=== PATIENT | female | born 1935 | race Caucasian/White ===

== ENCOUNTER 2017-10-25 17:06 | Inpatient (IN) | payer MEDICARE, OTHER ==
[~2017-10-25] VITALS: Ht 162.6 cm; Wt 64.0 kg
--- NOTE | 2017-10-25 17:00 | NUR ---
Admitted from [facility], [facility], accompanied by ambulance staff. In stable condition, alert x4. Not in any form of distress. With slurred speech, right lower extremity weakness. Oriented to unit. Call light within reach. Routine admission care done.
--- NOTE | 2017-10-25 17:30 | NUR ---
Informed Dr La and Dr. Teofilo Menchaca of admission.
[2017-10-25 18:11] VITALS: BP 134/66
[2017-10-25] MEDS ORDERED: Z GUARD REMEDY PASTE 57 GM TUBE TOP PRN (18:15)
[2017-10-25] MEDS ORDERED: PREG50CA PO (18:15)
[2017-10-25] MEDS ORDERED: APIX5TAB PO (18:15)
[2017-10-25] MEDS ORDERED: ATOR80TA PO (18:15)
[2017-10-25] MEDS ORDERED: SENN-18 PO (18:15)
[2017-10-25] MEDS ORDERED: MAGNESIUM HYDROXIDE 30 ML LIQUID UDC PO PRN (18:15)
[2017-10-25] MEDS ORDERED: DILT120C11 PO (18:15)
[2017-10-25] MEDS ORDERED: TOLT4CAP PO (18:15)
[2017-10-25] MEDS ORDERED: METH5TAB70 PO (18:15)
[2017-10-25] MEDS ORDERED: PANT40TA2 PO (18:15)
[2017-10-25] MEDS ORDERED: ACET-2154 PO (18:15)
[2017-10-25] MEDS ORDERED: ZOLPIDEM 5 MG TABLET PO PRN (18:30)
--- NOTE | 2017-10-25 19:30 | NUR ---
Received patient in bed. Alert and verbally responsive. Able to make needs known. Denies any pain and discomfort at this time. No acute distress. No SOB. Kept clean and dry. All needs attended to promptly. Call light within reach. Will continue to monitor.
[2017-10-25] MEDS ORDERED: APIXABAN 5 MG TABLET PO ONE (20:00)
[2017-10-25] MEDS ORDERED: ACETAMINOPHEN 325 MG TABLET PO PRN (20:00)
--- NOTE | 2017-10-25 20:30 | NUR ---
Eliquyasemin not administered. Home med not in stock. Pending family member to send medication.
[2017-10-25 20:46] VITALS: BP 128/71
[2017-10-25] MEDS: DILTIAZEM HCL SR 60 MG CAP.SR.12H PO SCH (21:26)
[2017-10-25] MEDS: SENNOSIDES 1 TABLET PO SCH (21:27)
[2017-10-25] MEDS: ATORVASTATIN 40 MG TABLET PO SCH (21:27)
--- NOTE | 2017-10-26 06:14 | NUR ---
Patient slept comfortably throughout the night. No c/o pain and discomfort. No acute distress. No SOB. Kept clean and dry. All needs attended to promptly. Call light within reach. Will continue to monitor.
[2017-10-26] MEDS: PANTOPRAZOLE SODIUM 40 MG TABLET.DR PO SCH (06:29)
[2017-10-26 08:52] VITALS: BP 104/48
[2017-10-26] MEDS ORDERED: APIXABAN 5 MG TABLET PO SCH (09:00)
[2017-10-26] MEDS ORDERED: APIXABAN 5 MG TABLET PO ONE (09:15)
[2017-10-26] MEDS: METHIMAZOLE 5 MG TABLET PO SCH ×2 (09:28→17:06)
[2017-10-26] MEDS: TOLTERODINE LA 2 MG CAP.SR.24H PO SCH (09:29)
[2017-10-26] MEDS: PREGABALIN 50 MG CAPSULE PO SCH ×3 (09:29→17:06)
[2017-10-26] MEDS: DILTIAZEM HCL SR 60 MG CAP.SR.12H PO SCH ×2 (09:29→21:00)
--- NOTE | 2017-10-26 10:01 | NUR ---
pt seen on rounding. pt vitals stable. no signs of stroke.NIH baseline remained the same. pt assessed and had mild right sided weakness. PT and OT agreed. pt seen by . signs of dysphagia. pt able to swallow pills whole. will continue to monitor.
[2017-10-26] MEDS: APIXABAN 5 MG TABLET PO SCH (17:05)
--- NOTE | 2017-10-26 18:33 | NUR ---
pt stable throughout the day. pt continues to sleep interminently throughout the day. vitals stable. no changes on NIH scale. seen by md webster. states that he will do notes later. will endorse to steam pipe fitter nurse.
--- NOTE | 2017-10-26 19:30 | NUR ---
Received patient awake in bed, no s/s of distress. Verbalized absence of pain at this time. Call light within reach. Encouraged to call whenever necessary. Will continue to monitor.
[2017-10-26 20:45] VITALS: BP 117/69
[2017-10-26] MEDS: ATORVASTATIN 40 MG TABLET PO SCH (21:27)
[2017-10-26] MEDS: SENNOSIDES 1 TABLET PO SCH (21:27)
[2017-10-27] MEDS: PANTOPRAZOLE SODIUM 40 MG TABLET.DR PO SCH (06:37)
--- NOTE | 2017-10-27 06:47 | NUR ---
Pt awake in bed. Stayed in a stable condition during the shift. Slept well. No complaints of pain. Due meds given. Needs attended. Frequent checks done. Call light kept within reach. Endorsed accordingly.
[2017-10-27] MEDS: PREGABALIN 50 MG CAPSULE PO SCH ×3 (08:32→16:37)
[2017-10-27] MEDS: APIXABAN 5 MG TABLET PO SCH ×2 (08:32→16:38)
[2017-10-27] MEDS: TOLTERODINE LA 2 MG CAP.SR.24H PO SCH (08:32)
[2017-10-27] MEDS: DILTIAZEM HCL SR 60 MG CAP.SR.12H PO SCH ×2 (08:33→20:42)
[2017-10-27] MEDS: METHIMAZOLE 5 MG TABLET PO SCH ×2 (08:34→16:37)
--- NOTE | 2017-10-27 09:44 | NUR ---
pt seen on rounding. vitals stable. no new injuries. pt given med whole without dysphagia. pt assisted to the bathroom pt voided and had bm. pt is mod assist on walking because pt loses strength as she walks. nih baseline. will continue to monitor.
[2017-10-27 10:00] VITALS: BP 125/68
[2017-10-27] MEDS ORDERED: APIXABAN 5 MG TABLET PO SCH (12:30)
[2017-10-27] MEDS: ASPIRIN EC 81 MG TABLET.DR PO SCH (12:55)
--- NOTE | 2017-10-27 17:56 | NUR ---
pt stable throughout the day. no changes on NIH scale. pt given meds. no new orders from md Barba. will endorse to plant operator/shift supervisor nurse.
--- NOTE | 2017-10-27 19:40 | NUR ---
Pt resting comfortably in bed and watching TV. Icelandic speaking, speak a little bit of Guinean. Able to make needs known. No acute distress noted. No c/o pain or discomfort. Safety measures maintained. Call light and personal belongings within reach. Will continue to monitor.
[2017-10-27 20:25] VITALS: BP 134/77
[2017-10-27] MEDS: SENNOSIDES 1 TABLET PO SCH (20:39)
[2017-10-27] MEDS: ATORVASTATIN 40 MG TABLET PO SCH (20:39)
--- NOTE | 2017-10-28 05:45 | NUR ---
Pt slept comfortably t/o the night. VSS. Meds given per MD's order. Pt is compliant. All needs attended to promptly. Will endorse to day shift RN. Continue to monitor.
[2017-10-28] MEDS: PANTOPRAZOLE SODIUM 40 MG TABLET.DR PO SCH (06:31)
--- NOTE | 2017-10-28 07:20 | NUR ---
NURSE NOTES: RECEIVED PATIENT ASLEEP, LYING ON BED ON A SEMI- ARRIOLA'S POSITION WITH NO MOANING, NO DISTRESS OR DISCOMFORTS NOTED. EASILY AROUSED. ALL NEEDS WERE ATTENDED AND ANTICIPATED. WILL CONTINUE TO MONITOR.
[2017-10-28 08:16] VITALS: BP 136/60
[2017-10-28] MEDS: ASPIRIN EC 81 MG TABLET.DR PO SCH (08:29)
[2017-10-28] MEDS: PREGABALIN 50 MG CAPSULE PO SCH ×3 (08:30→16:59)
[2017-10-28] MEDS: APIXABAN 5 MG TABLET PO SCH ×2 (08:30→17:00)
[2017-10-28] MEDS: METHIMAZOLE 5 MG TABLET PO SCH ×2 (08:30→16:59)
[2017-10-28] MEDS: TOLTERODINE LA 2 MG CAP.SR.24H PO SCH (08:31)
[2017-10-28] MEDS: DILTIAZEM HCL SR 60 MG CAP.SR.12H PO SCH ×2 (08:31→20:32)
--- NOTE | 2017-10-28 13:00 | NUR ---
PATIENT ASLEEP, LYING ON BED ON A SEMI- ARRIOLA'S POSITION WITH NO SOB NO DISTRESS NOTED. ALL NEEDS WERE ATTENDED AND ANTICIPATED. PATIENT EASILY AROUSED. ALL NEEDS WERE ATTENDED AND ANTICIPATED. CALL LIGHT WITHIN REACH. WILL CONTINUE TO MONITOR.
[2017-10-28] MEDS ORDERED: ACETAMINOPHEN 325 MG TABLET PO SCH (14:45)
[2017-10-28] MEDS: ACETAMINOPHEN ES 500 MG TABLET PO SCH ×2 (15:01→16:59)
--- NOTE | 2017-10-28 18:51 | NUR ---
PATIENT REMAINED TO BE IN STABLE CONDITION WITH NO SOB, NO DISTRESS NOTED. ALL NEEDS WERE ATTENDED AND ANTICIPATED. CALL LIGHT PLACED WITHIN REACH. WILL ENDORSE TO INCOMING SHIFT.
--- NOTE | 2017-10-28 19:30 | NUR ---
Report received. Patient AAO during rounds. Able to communicate needs. NAD noted.
[2017-10-28 20:00] VITALS: BP 118/65
--- NOTE | 2017-10-28 20:00 | NUR ---
Family visiting. Stephan bottle received from patient's daughter and given to operations logistics analyst. Patient conversant and responds well to family.
[2017-10-28] MEDS: SENNOSIDES 1 TABLET PO SCH (20:32)
[2017-10-28] MEDS: ATORVASTATIN 40 MG TABLET PO SCH (20:32)
[2017-10-29] MEDS: PANTOPRAZOLE SODIUM 40 MG TABLET.DR PO SCH (06:25)
[2017-10-29 06:50] LABS: BASOPHILS % (AUTO) 0.3 % (0.0-2.0); EOSINOPHILS # (AUTO) 0.2 K/uL (0.0-0.7); EOSINOPHILS % (AUTO) 2.1 % (0.0-7.0); HEMATOCRIT 38.3 % (31.2-41.9); HEMOGLOBIN 12.7 g/dL (10.9-14.3); LYMPHOCYTES # (AUTO) 2.8 K/uL (20.0-40.0); LYMPHOCYTES % (AUTO) 28.2 % (20.5-51.5); MEAN CORPUSCULAR HEMOGLOBIN 29.1 uug (24.7-32.8); MEAN CORPUSCULAR HGB CONC 33 g/dL (32.3-35.6); MEAN CORPUSCULAR VOLUME 87.5 fL (75.5-95.3); MONOCYTES % (AUTO) 10.5 % (0.0-11.0); NEUTROPHILS # (AUTO) 5.8 K/uL (1.8-8.9); NEUTROPHILS % (AUTO) 58.9 % (38.5-71.5); PLATELET COUNT (AUTO) 254 K/uL (179-408); RED BLOOD CELL COUNT(AUTO) 4.38 MIL/uL (3.63-4.92); WHITE BLOOD COUNT (AUTO) 9.9 K/uL (3.8-11.8)
--- NOTE | 2017-10-29 06:51 | NUR ---
Slept well during the night. NAD noted.
[2017-10-29 07:00] LABS: ALANINE AMINOTRANSFERASE 15 U/L (14-59); ALKALINE PHOSPHATASE 79 U/L (50-136); ASPARTATE AMINOTRANSFERASE 18 U/L (15-37); BILIRUBIN,TOTAL 0.4 mg/dL (0.2-1.0); CARBON DIOXIDE 26 mmol/L (21-32); CHLORIDE 105 mmol/L (98-107); GLUCOSE 103 mg/dL (74-106); MAGNESIUM 1.9 mg/dL (1.8-2.4); PHOSPHOROUS 3.2 mg/dL (2.5-4.9); POTASSIUM 4.5 mmol/L (3.5-5.1); TOTAL PROTEIN, SERUM 6.6 g/dL (6.4-8.2); UREA NITROGEN, BLOOD 27 mg/dL (7-18)
[2017-10-29 07:30] VITALS: BP 131/66
[2017-10-29] MEDS: TOLTERODINE LA 2 MG CAP.SR.24H PO SCH (09:00)
[2017-10-29] MEDS: METHIMAZOLE 5 MG TABLET PO SCH ×2 (10:40→18:09)
[2017-10-29] MEDS: ACETAMINOPHEN ES 500 MG TABLET PO SCH ×3 (10:40→18:08)
[2017-10-29] MEDS: ASPIRIN EC 81 MG TABLET.DR PO SCH (10:41)
[2017-10-29] MEDS: DILTIAZEM HCL SR 60 MG CAP.SR.12H PO SCH ×2 (10:42→20:17)
[2017-10-29] MEDS: PREGABALIN 50 MG CAPSULE PO SCH ×3 (10:43→18:08)
[2017-10-29] MEDS: ****PATIENT'S OWN MED PO SCH ×2 (10:43→18:10)
--- NOTE | 2017-10-29 19:30 | NUR ---
Patient currently lying in bed comfortably with no signs of pain, sob, or acute distress. A/O x4, Farsi speaking, & able to make needs known. Pertinent assessment completed. Bed in low position x2 side rails up. Bed alarm checked at start of shift. Call light placed within reach of pt. Will continue to monitor pt through shift.
[2017-10-29] MEDS: SENNOSIDES 1 TABLET PO SCH (20:17)
[2017-10-29] MEDS: ATORVASTATIN 40 MG TABLET PO SCH (20:17)
[2017-10-29 20:29] VITALS: BP 129/73
--- NOTE | 2017-10-30 05:45 | NUR ---
Patient slept well through the shift. no acute distress noted. vital signs remained WNL. all needs attended to. all meds administered as ordered per MD. diaper changed per soiling. safety measures implemented. call light within reach. will endorse to day shift nurse.
[2017-10-30] MEDS: PANTOPRAZOLE SODIUM 40 MG TABLET.DR PO SCH (06:32)
[2017-10-30 08:07] VITALS: BP 129/68
[2017-10-30] MEDS: PREGABALIN 50 MG CAPSULE PO SCH ×3 (08:48→17:13)
[2017-10-30] MEDS: ACETAMINOPHEN ES 500 MG TABLET PO SCH ×3 (08:48→17:13)
[2017-10-30] MEDS: ASPIRIN EC 81 MG TABLET.DR PO SCH (08:48)
[2017-10-30] MEDS: METHIMAZOLE 5 MG TABLET PO SCH ×2 (08:49→17:12)
[2017-10-30] MEDS: TOLTERODINE LA 2 MG CAP.SR.24H PO SCH (08:49)
[2017-10-30] MEDS: ****PATIENT'S OWN MED PO SCH ×2 (08:49→17:15)
[2017-10-30] MEDS: DILTIAZEM HCL SR 60 MG CAP.SR.12H PO SCH ×2 (08:51→20:15)
--- NOTE | 2017-10-30 19:30 | NUR ---
Patient currently lying in bed at start of shift with no signs of pain, sob, or acute distress. Daughter at the bedside. Vital signs within range. Pertinent assessment completed. able to make needs known. bed in low position, locked, x2 side rails up. encouraged patient to use call light when in need of assistance. will continue to monitor pt through shift.
[2017-10-30] MEDS: SENNOSIDES 1 TABLET PO SCH (20:14)
[2017-10-30] MEDS: ATORVASTATIN 40 MG TABLET PO SCH (20:14)
[2017-10-30 20:21] VITALS: BP 118/70
--- NOTE | 2017-10-31 05:43 | NUR ---
Patient slept well through the shift. no acute distress noted. All medications administered as ordered per MD. Needs attended to promptly. patient changed per soiling. kept clean, dry. safety measures implemented. bed in low position x2 side rails up. call light within reach. will endorse to day shift RN.
[2017-10-31] MEDS: PANTOPRAZOLE SODIUM 40 MG TABLET.DR PO SCH (06:30)
[2017-10-31] MEDS: DILTIAZEM HCL SR 60 MG CAP.SR.12H PO SCH ×2 (09:11→20:30)
[2017-10-31] MEDS: TOLTERODINE LA 2 MG CAP.SR.24H PO SCH (09:12)
[2017-10-31] MEDS: ACETAMINOPHEN ES 500 MG TABLET PO SCH ×3 (09:13→18:02)
[2017-10-31] MEDS: ****PATIENT'S OWN MED PO SCH ×2 (09:13→18:03)
[2017-10-31] MEDS: ASPIRIN EC 81 MG TABLET.DR PO SCH (09:13)
[2017-10-31] MEDS: PREGABALIN 50 MG CAPSULE PO SCH ×3 (09:13→18:02)
[2017-10-31] MEDS: METHIMAZOLE 5 MG TABLET PO SCH ×2 (09:14→18:03)
[2017-10-31 09:48] VITALS: BP 140/78
[2017-10-31] MEDS ORDERED: BISACODYL 5 MG TABLET.DR PO PRN (19:00)
[2017-10-31 19:30] VITALS: BP 141/66
--- NOTE | 2017-10-31 19:30 | NUR ---
Patient currently stable with no s/s of pain, sob, or acute distress. Lying in bed comfortably, bed in low position x2 side rails up. Pertinent assessment completed. patient still noted with constipation. Day shift RN received new orders for Dulcolax tabs. Will carry out order and monitor pt for BM. call light within reach of pt. will continue to monitor pt through shift.
[2017-10-31] MEDS: SENNOSIDES 1 TABLET PO SCH (20:30)
[2017-10-31] MEDS: ATORVASTATIN 40 MG TABLET PO SCH (20:30)
[2017-10-31] MEDS: BISACODYL 5 MG TABLET.DR PO PRN (20:31)
--- NOTE | 2017-11-01 05:39 | NUR ---
Patient stable through shift. no acute distress noted. patient slept well. all needs attended to. meds administered as ordered per MD. vital signs stable through shift. safety measures implemented. call light within reach. will endorse to day shift nurse.
[2017-11-01] MEDS: PANTOPRAZOLE SODIUM 40 MG TABLET.DR PO SCH (06:30)
[2017-11-01] MEDS: DILTIAZEM HCL SR 60 MG CAP.SR.12H PO SCH ×2 (09:01→21:02)
[2017-11-01 09:02] VITALS: BP 135/72
[2017-11-01] MEDS: TOLTERODINE LA 2 MG CAP.SR.24H PO SCH (09:03)
[2017-11-01] MEDS: PREGABALIN 50 MG CAPSULE PO SCH ×3 (09:03→16:22)
[2017-11-01] MEDS: ASPIRIN EC 81 MG TABLET.DR PO SCH (09:04)
[2017-11-01] MEDS: METHIMAZOLE 5 MG TABLET PO SCH ×2 (09:04→16:23)
[2017-11-01] MEDS: ACETAMINOPHEN ES 500 MG TABLET PO SCH ×3 (09:05→16:22)
[2017-11-01] MEDS: BISACODYL 5 MG TABLET.DR PO PRN (09:05)
[2017-11-01] MEDS: ****PATIENT'S OWN MED PO SCH ×2 (09:06→16:23)
--- NOTE | 2017-11-01 14:30 | NUR ---
INTERDISCIPLINARY TEAM CONFERENCE
--- NOTE | 2017-11-01 17:37 | NUR ---
Patient is awake and alert, not in acute distress, verbally responsive. Patient had a BM X2 today with no signs and no symptoms of diarrhea at this time. Patient was compliant with her plan of care, provided education as to any concerns that she has about her care plan in simple words that she can comprehend, she verbalized understanding. Patient is on routine pain medications, was encouraged to increase oral intake of fluids. Needs attended promptly. She participated well with her PT/OT today. Call light placed in easy reach.
--- NOTE | 2017-11-01 19:40 | NUR ---
Assisted the patient to rest room per request. patient had BMx 1. no c/o of pain or any discomfort will continue to monitor
[2017-11-01 20:25] VITALS: BP 108/60
[2017-11-01] MEDS: SENNOSIDES 1 TABLET PO SCH (21:02)
[2017-11-01] MEDS: ATORVASTATIN 40 MG TABLET PO SCH (21:02)
--- NOTE | 2017-11-02 06:45 | NUR ---
PATIENT INTERMITTENTLY SLEEPING. ASSISTED BRP ON REQUEST. BMX 2 DURING THE SHIFT. NO C/O PAIN OR ANY DISCOMFORT
[2017-11-02] MEDS: PANTOPRAZOLE SODIUM 40 MG TABLET.DR PO SCH (06:55)
--- NOTE | 2017-11-02 07:06 | NUR ---
NURSE NOTES: Received patient asleep, on bed, easily aroused, alert and oriented, able to verbalize needs. Call light placed within reach. Encourage to call the nurse whenever assistance is needed. Will continue to monitor.
[2017-11-02 08:00] VITALS: BP 125/73
[2017-11-02] MEDS: ACETAMINOPHEN ES 500 MG TABLET PO SCH ×3 (08:49→17:03)
[2017-11-02] MEDS: ASPIRIN EC 81 MG TABLET.DR PO SCH (08:49)
[2017-11-02] MEDS: TOLTERODINE LA 2 MG CAP.SR.24H PO SCH (08:49)
[2017-11-02] MEDS: PREGABALIN 50 MG CAPSULE PO SCH ×3 (08:49→17:03)
[2017-11-02] MEDS: METHIMAZOLE 5 MG TABLET PO SCH ×2 (08:50→17:03)
[2017-11-02] MEDS: ****PATIENT'S OWN MED PO SCH ×2 (08:50→17:04)
[2017-11-02] MEDS: DILTIAZEM HCL SR 60 MG CAP.SR.12H PO SCH ×2 (08:50→21:18)
--- NOTE | 2017-11-02 18:32 | NUR ---
NURSE NOTES: Patient remained stable throughout the shift. No SOB or distress. All needs were attended and anticipated. Visited by family. call light within reach at all times.
[2017-11-02 19:30] VITALS: BP 115/58
[2017-11-02] MEDS: ATORVASTATIN 40 MG TABLET PO SCH (21:17)
[2017-11-02] MEDS: SENNOSIDES 1 TABLET PO SCH (21:17)
--- NOTE | 2017-11-03 07:20 | NUR ---
Patient currently lying in bed with no signs of pain, sob, or acute distress. Vital signs within range. Pertinent assessment completed. able to make needs known. bed in low position, locked, x2 side rails up. encouraged patient to use call light when in need of assistance. will continue to monitor pt through shift
[2017-11-03] MEDS: PANTOPRAZOLE SODIUM 40 MG TABLET.DR PO SCH (07:54)
[2017-11-03] MEDS: ACETAMINOPHEN ES 500 MG TABLET PO SCH ×3 (08:02→16:14)
[2017-11-03] MEDS: ASPIRIN EC 81 MG TABLET.DR PO SCH (08:02)
[2017-11-03] MEDS: PREGABALIN 50 MG CAPSULE PO SCH ×3 (08:02→16:14)
[2017-11-03] MEDS: TOLTERODINE LA 2 MG CAP.SR.24H PO SCH (08:03)
[2017-11-03] MEDS: DILTIAZEM HCL SR 60 MG CAP.SR.12H PO SCH ×2 (08:04→21:13)
[2017-11-03] MEDS: ****PATIENT'S OWN MED PO SCH ×2 (08:04→16:14)
[2017-11-03] MEDS: METHIMAZOLE 5 MG TABLET PO SCH ×2 (08:04→16:14)
[2017-11-03 09:21] VITALS: BP 139/69
--- NOTE | 2017-11-03 16:53 | NUR ---
pt seen by dr rojo
--- NOTE | 2017-11-03 16:58 | NUR ---
Patient currently stable with no s/s of pain, sob, or acute distress. Lying in bed comfortably, bed in low position x2 side rails up. call light within reach of pt. will continue to monitor
[2017-11-03 19:30] VITALS: BP 121/74
[2017-11-03] MEDS: SENNOSIDES 1 TABLET PO SCH (21:14)
[2017-11-03] MEDS: ATORVASTATIN 40 MG TABLET PO SCH (21:14)
--- NOTE | 2017-11-03 22:00 | NUR ---
Family at bedside at start of shift; updated with pt condition. Pt alert, calm and cooperative. Denies any pain/discomfort. Nursing comfort measures observed at all times. All safety and fall precautions maintained. Please see flowsheet for full assessment and clinical data.
--- NOTE | 2017-11-04 05:30 | NUR ---
Restful, stable night. Able to sleep well. Denies pain and discomfort. All needs provided and met. Fall and safety precautions maintained.
[2017-11-04] MEDS: PANTOPRAZOLE SODIUM 40 MG TABLET.DR PO SCH (06:33)
[2017-11-04 07:00] VITALS: BP 135/74
[2017-11-04] MEDS: ACETAMINOPHEN ES 500 MG TABLET PO SCH ×3 (09:23→17:12)
[2017-11-04] MEDS: PREGABALIN 50 MG CAPSULE PO SCH ×3 (09:24→17:12)
[2017-11-04] MEDS: TOLTERODINE LA 2 MG CAP.SR.24H PO SCH (09:24)
[2017-11-04] MEDS: DILTIAZEM HCL SR 60 MG CAP.SR.12H PO SCH ×2 (09:24→20:35)
[2017-11-04] MEDS: ****PATIENT'S OWN MED PO SCH ×2 (09:25→17:12)
[2017-11-04] MEDS: METHIMAZOLE 5 MG TABLET PO SCH ×2 (09:25→17:12)
[2017-11-04] MEDS: ASPIRIN EC 81 MG TABLET.DR PO SCH (09:25)
--- NOTE | 2017-11-04 10:00 | NUR ---
pt seen on rounding. vitals stable. NIH scale done and remained baseline. no changes. vitals stable. bp at target. will continue to monitor.
--- NOTE | 2017-11-04 15:00 | NUR ---
Pay Clerk: Biopsychosocial Assessment SW met with patient at bedside to assess her needs and provide support. Patient is an 82-year-old female admitted to ARU due to functional decline and impaired mobility. Patient presented to ER after she started "feeling funny" in her right lower extremity and was not able to ambulate. MRI of brain showed acute left thalamic lacunar infarct. Patient appears to have impaired speech and spoke very softly throughout interview. Mental Status: Patient appeared alert and oriented x4 during interview. She presented in a motivated mood with a congruent affect. She reported to be "feeling good" and expressed that she is looking forward to going home. Patient has been in the hospital since October 25, 2017. There is no mental illness history reported. Patient is pleasant, calm, and cooperative. Patient appears to be coping well with PT and OT and reported that her physical therapist is "very good." Support System: Patient lives at home with her daughter. She reported that she also has a son whom she receives support from. Patient has been visited by family often while in the hospital. Patient expressed that she will have caregiving needs when she returns home, but was unsure if her daughter had arranged this. Patient appears to have a strong support system. Goals: Patient reports that her goal is to get stronger. Interventions: SW engaged in active listening. SW provided emotional support and counseling. SW will provide linkage to case management, and provide caregiving referrals to family and patient. SW will encourage patient to comply with rehab goals.
--- NOTE | 2017-11-04 18:42 | NUR ---
pt stable throughout the day. pt able to swallow pills without complications. pt seen by ot st and pt. pt improving on speech and tolerance with exercise. defecits seen but not neglected. will endorse to pepper cutter nurse.
[2017-11-04 19:30] VITALS: BP 130/63
--- NOTE | 2017-11-04 19:30 | NUR ---
Received patient in bed. Alert and verbally responsive. Able to make needs known. Denies any pain and discomfort at this time. No acute distress. No SOB. Kept clean and dry. All needs attended to promptly. Bed alarm on. Call light within reach. Will continue to monitor.
[2017-11-04] MEDS: SENNOSIDES 1 TABLET PO SCH (20:35)
[2017-11-04] MEDS: ATORVASTATIN 40 MG TABLET PO SCH (20:35)
[2017-11-05] MEDS: PANTOPRAZOLE SODIUM 40 MG TABLET.DR PO SCH (06:33)
[2017-11-05 08:00] VITALS: BP 134/65
[2017-11-05] MEDS: PREGABALIN 50 MG CAPSULE PO SCH ×3 (08:55→17:06)
[2017-11-05] MEDS: TOLTERODINE LA 2 MG CAP.SR.24H PO SCH (08:55)
[2017-11-05] MEDS: ASPIRIN EC 81 MG TABLET.DR PO SCH (08:55)
[2017-11-05] MEDS: ACETAMINOPHEN ES 500 MG TABLET PO SCH ×3 (08:55→17:06)
[2017-11-05] MEDS: ****PATIENT'S OWN MED PO SCH ×2 (08:56→17:06)
[2017-11-05] MEDS: DILTIAZEM HCL SR 60 MG CAP.SR.12H PO SCH ×2 (08:56→21:00)
[2017-11-05] MEDS: METHIMAZOLE 5 MG TABLET PO SCH ×2 (08:57→17:07)
--- NOTE | 2017-11-05 13:40 | NUR ---
SBAR report received, board updated. Pt assessed to have no acute distress, pain or SOB evident. Pt reports having slept "ok" last night and is compliant with routinely scheduled medications. NIH stroke scale reassessed, score remains. Pt teaching and education provided. Bed in locked and lowest position, with side rails up x2. All safety and comfort measures implemented. Call light and personal belongings placed within reach. Will continue to monitor.
--- NOTE | 2017-11-05 18:03 | NUR ---
Pt sitting up comfortably in wheelchair to eat dinner. Pt denies SOB and pain. Pt compliant with all scheduled medications. Call light and personal items placed within reach. Pt education reviewed on necessity to utilize call light for all needs. Comfort and safety measures implemented. Son visited briefly. Will continue to monitor and endorse to oncoming patient financial coordinator.
--- NOTE | 2017-11-05 19:45 | NUR ---
Received pt in bed, appearing to be asleep but easily arousable to verbal stimuli and light touch. No acute distress noted. Able to make needs known. Denies pain or discomfort. All safety measures and fall precautions maintained. Call light and all personal belongings within reach. Will continue to monitor.
[2017-11-05 20:47] VITALS: BP 111/55
[2017-11-05] MEDS: SENNOSIDES 1 TABLET PO SCH (21:10)
[2017-11-05] MEDS: ATORVASTATIN 40 MG TABLET PO SCH (21:10)
[2017-11-06] MEDS: PANTOPRAZOLE SODIUM 40 MG TABLET.DR PO SCH (06:49)
[2017-11-06 07:30] VITALS: BP 142/70
--- NOTE | 2017-11-06 08:40 | NUR ---
i agree Addendum: 11/06/17 at 0843 by CLAUDIO ROSALES OT Amended: Links added.
[2017-11-06] MEDS: TOLTERODINE LA 2 MG CAP.SR.24H PO SCH (08:41)
[2017-11-06] MEDS: PREGABALIN 50 MG CAPSULE PO SCH ×3 (08:41→17:19)
[2017-11-06] MEDS: ****PATIENT'S OWN MED PO SCH ×2 (08:41→17:19)
[2017-11-06] MEDS: METHIMAZOLE 5 MG TABLET PO SCH ×2 (08:42→17:19)
--- NOTE | 2017-11-06 08:43 | NUR ---
i agree Addendum: 11/06/17 at 0844 by CLAUDIO ROSALES OT Amended: Links added.
[2017-11-06] MEDS: ACETAMINOPHEN ES 500 MG TABLET PO SCH ×3 (08:44→17:20)
[2017-11-06] MEDS: DILTIAZEM HCL SR 60 MG CAP.SR.12H PO SCH ×2 (08:49→20:23)
--- NOTE | 2017-11-06 10:30 | NUR ---
SBAR report received, board updated. Pt assessed to be alert and oriented. Pt denies c/o pain and no distress evident. Diaper changed. Pt clean and dry. Pt compliant with all routinely scheduled medication administration. Goal for today discussed to participate with all therapies offered. bed in locked and lowest position, with side rails x2. Call light placed within reach. Will continue to monitor.
--- NOTE | 2017-11-06 19:20 | NUR ---
Received patient laying in bed. Alert and verbally responsive. Able to make needs known. Denies any pain and discomfort. No acute distress. No SOB. Kept clean and dry. All needs attended to promptly. Call light within reach. Will continue to monitor.
--- NOTE | 2017-11-06 20:02 | NUR ---
Pt clean dry and resting comfortably. All needs attended to. Call light within reach. Will endorse to oncoming shift supervisor melting.
[2017-11-06 20:06] VITALS: BP 135/70
[2017-11-06] MEDS: SENNOSIDES 1 TABLET PO SCH (20:22)
[2017-11-06] MEDS: ATORVASTATIN 40 MG TABLET PO SCH (20:23)
[2017-11-07] MEDS: PANTOPRAZOLE SODIUM 40 MG TABLET.DR PO SCH (06:30)
--- NOTE | 2017-11-07 07:48 | NUR ---
received report from night nurse. patient stable, asleep in bed. no s/s acute distress call light within reach. will monitor.
[2017-11-07 08:28] VITALS: BP 131/71
[2017-11-07] MEDS: DILTIAZEM HCL SR 60 MG CAP.SR.12H PO SCH ×2 (09:17→20:50)
[2017-11-07] MEDS: ****PATIENT'S OWN MED PO SCH ×2 (09:18→17:41)
[2017-11-07] MEDS: PREGABALIN 50 MG CAPSULE PO SCH ×3 (09:18→17:41)
[2017-11-07] MEDS: ACETAMINOPHEN ES 500 MG TABLET PO SCH ×3 (09:19→17:42)
[2017-11-07] MEDS: TOLTERODINE LA 2 MG CAP.SR.24H PO SCH (09:19)
[2017-11-07] MEDS: METHIMAZOLE 5 MG TABLET PO SCH ×2 (09:20→17:41)
--- NOTE | 2017-11-07 19:05 | NUR ---
patient stable at this time, resting comfortably in bed. no s/s acute distress. call light within patients reach. will monitor.
--- NOTE | 2017-11-07 19:40 | NUR ---
Received pt in bed, AAO x 3, no acute distress noted. Verbally responsive and able to make needs known. Denies pain or discomfort at this time. All safety measures and fall precautions maintained. Call light and all personal belongings within reach. Will continue to monitor.
[2017-11-07 20:21] VITALS: BP 125/74
[2017-11-07] MEDS: ATORVASTATIN 40 MG TABLET PO SCH (20:47)
[2017-11-07] MEDS: SENNOSIDES 1 TABLET PO SCH (20:47)
[2017-11-08] MEDS: PANTOPRAZOLE SODIUM 40 MG TABLET.DR PO SCH (06:45)
[2017-11-08 08:00] VITALS: BP 134/70
--- NOTE | 2017-11-08 08:00 | NUR ---
Resident awake,alert,oriented and able to make needs known with no s/sx of distress,breathing even and unlabored.Residents call light placed within easy reach.No manifestation of pain or discomfort,with all needs anticipated attended and met.V/S checked and within normal limits.
[2017-11-08] MEDS: DILTIAZEM HCL SR 60 MG CAP.SR.12H PO SCH ×2 (08:57→20:51)
[2017-11-08] MEDS: PREGABALIN 50 MG CAPSULE PO SCH ×3 (08:58→17:07)
[2017-11-08] MEDS: TOLTERODINE LA 2 MG CAP.SR.24H PO SCH (08:58)
[2017-11-08] MEDS: ****PATIENT'S OWN MED PO SCH ×2 (08:58→17:09)
[2017-11-08] MEDS: ACETAMINOPHEN ES 500 MG TABLET PO SCH ×3 (08:59→17:07)
[2017-11-08] MEDS: METHIMAZOLE 5 MG TABLET PO SCH ×2 (08:59→17:08)
--- NOTE | 2017-11-08 13:44 | NUR ---
INTERDISCIPLINARY TEAM CONFERENCE
[2017-11-08 19:30] VITALS: BP 139/67
--- NOTE | 2017-11-08 19:40 | NUR ---
Received pt in bed, AAO watching television. No acute distress noted. Verbally responsive and able to make needs known. Denies pain or discomfort at this time. All safety measures and fall precautions maintained. Call light and all personal belongings within reach. Will continue to monitor.
[2017-11-08] MEDS: SENNOSIDES 1 TABLET PO SCH (20:50)
[2017-11-08] MEDS: ATORVASTATIN 40 MG TABLET PO SCH (20:50)
[2017-11-09] MEDS: PANTOPRAZOLE SODIUM 40 MG TABLET.DR PO SCH (06:44)
[2017-11-09 07:00] VITALS: BP 125/66
--- NOTE | 2017-11-09 07:42 | NUR ---
Pt awake,verbally responsive to stimuli with no s/sx of distress.Call light placed within easy reach.No complain of pain or discomfort.All needs anticipated attended and met.
[2017-11-09] MEDS: DILTIAZEM HCL SR 60 MG CAP.SR.12H PO SCH ×2 (09:16→20:24)
[2017-11-09] MEDS: TOLTERODINE LA 2 MG CAP.SR.24H PO SCH (09:17)
[2017-11-09] MEDS: ACETAMINOPHEN ES 500 MG TABLET PO SCH ×3 (09:18→17:01)
[2017-11-09] MEDS: PREGABALIN 50 MG CAPSULE PO SCH ×3 (09:18→17:01)
[2017-11-09] MEDS: METHIMAZOLE 5 MG TABLET PO SCH ×2 (09:19→17:01)
[2017-11-09] MEDS: ****PATIENT'S OWN MED PO SCH ×2 (09:23→17:02)
--- NOTE | 2017-11-09 16:00 | NUR ---
came seen and examined patient,medication reconciliation done with no new order.
--- NOTE | 2017-11-09 19:40 | NUR ---
Pt resting comfortably at bedside. Farsi speaking but able to make needs known. No acute distress noted. No c/o pain or discomfort. Safety measures maintained. Call light and personal belongings within reach. Will continue to monitor.
[2017-11-09] MEDS: ATORVASTATIN 40 MG TABLET PO SCH (20:17)
[2017-11-09] MEDS: SENNOSIDES 1 TABLET PO SCH (20:17)
[2017-11-09 20:39] VITALS: BP 134/66
--- NOTE | 2017-11-10 05:48 | NUR ---
Pt slept comfortably at night. Pt to be discharged today. VSS. Meds given per MD's order. Pt compliant. All needs attended to promptly. Diaper changed as needed. Will endorse to day shift RN. Continue to monitor.
[2017-11-10] MEDS: PANTOPRAZOLE SODIUM 40 MG TABLET.DR PO SCH (06:34)
--- NOTE | 2017-11-10 08:20 | NUR ---
Received patient awake, alert x4. Denies any pain. Still with base line slurred speech. On room air. Not in any form of distress. For discharge today
[2017-11-10] MEDS: TOLTERODINE LA 2 MG CAP.SR.24H PO SCH (08:32)
[2017-11-10] MEDS: METHIMAZOLE 5 MG TABLET PO SCH (08:32)
[2017-11-10] MEDS: ****PATIENT'S OWN MED PO SCH (08:32)
[2017-11-10] MEDS: DILTIAZEM HCL SR 60 MG CAP.SR.12H PO SCH (08:32)
[2017-11-10] MEDS: PREGABALIN 50 MG CAPSULE PO SCH ×2 (08:33→12:59)
[2017-11-10] MEDS: ACETAMINOPHEN ES 500 MG TABLET PO SCH ×2 (08:44→13:00)
[2017-11-10 10:03] VITALS: BP 114/60
--- NOTE | 2017-11-10 13:00 | NUR ---
Patient refused Tylenol medication, claims she is not in any pain. Discussed risks and benefits but patient still refused
--- NOTE | 2017-11-10 15:25 | NUR ---
Discharged to home in stable condition. No complaints of pain. Alert x4. Discharge packet and medications given to daughter. Instructed to take medications as prescribed, ambulate with assistive device and follow up with PCP tomorrow at 1530. Discharge with [facility]. Routine discharge care done. Accompanied by ambulance per [facility].
== END 2017-11-10 15:25 | disposition home health service (06) | DRG 57 ==
PROVIDERS: ADMIT Physical Medicine & Rehabilitation Pain Medicine; ATTEND Physical Medicine & Rehabilitation Pain Medicine
DX: I69.398 Other sequelae of cerebral infarction (principal); I48.0 Paroxysmal atrial fibrillation; E05.90 Thyrotoxicosis, unspecified without thyrotoxic crisis or storm; I10 Essential (primary) hypertension; Z79.01 Long term (current) use of anticoagulants; I48.2 Chronic atrial fibrillation; Z86.73 Personal history of transient ischemic attack (TIA), and cerebral infarction without residual deficits; E78.5 Hyperlipidemia, unspecified; Z88.0 Allergy status to penicillin; Z91.02 Food additives allergy status; R26.2 Difficulty in walking, not elsewhere classified
CPT/HCPCS: 36415; 70030-TC; 83735; 84100; 85025; 92507; 92523; 93005; 93307; 97110; 97112; 97116; 97165; 97530; 97535; A9150

== ENCOUNTER 2021-07-13 20:41 | Inpatient (IN) | payer MEDICARE, OTHER ==
[~2021-07-13] VITALS: Ht 170.2 cm; Wt 72.6 kg
[~2021-07-13 20:41] MED LIST: ACET-2154 PO; APIX5TAB PO; ATOR80TA PO; DILT120C11 PO; METH5TAB70 PO; PANT40TA2 PO; PREG50CA PO; SENN-18 PO; TOLT4CAP PO
--- NOTE | 2021-07-13 20:50 | NUR ---
Pt bib RA for R/O stroke. brought straight back to room ED2B and connected to monitor. VSS, pt has good color, temp and appearance. Denies any pain, nausea or discomfort. EDIN has already assessed pt. awaiting orders.
[2021-07-13 21:38] LABS: HEMATOCRIT 40.2 % (31.2-41.9); MEAN CORPUSCULAR HEMOGLOBIN 30.9 uug (24.7-32.8); MEAN CORPUSCULAR VOLUME 91.6 fL (75.5-95.3); PLATELET COUNT (AUTO) 295 K/uL (179-408)
[2021-07-13 21:52] LABS: BILIRUBIN,DIRECT 0.1 mg/dL (0.0-0.2); BILIRUBIN,TOTAL 0.6 mg/dL (0.2-1.0); TOTAL PROTEIN, SERUM 7.7 g/dL (6.4-8.2)
[2021-07-13 22:01] LABS: MAGNESIUM 2.3 mg/dL (1.8-2.4)
[2021-07-13 22:05] LABS: THYROID STIMULATING HORMONE 1.612 mIU/mL (0.358-3.740)
[2021-07-13] MEDS ORDERED: ASPIRIN 81 MG TAB.CHEW PO ONE (22:45)
--- NOTE | 2021-07-13 22:50 | NUR ---
[facility] called for panel call, Dr. Fuentes salesperson parts and well call back.
[2021-07-13] MEDS ORDERED: ASPIRIN 81 MG TAB.CHEW ONE (23:07)
[2021-07-13] MEDS ORDERED: Z GUARD REMEDY PASTE 57 GM TUBE TOP PRN (23:30)
[2021-07-13] MEDS ORDERED: ACETAMINOPHEN 325 MG TABLET PO PRN (23:30)
[2021-07-13] MEDS ORDERED: MAGNESIUM HYDROXIDE 30 ML LIQUID UDC PO PRN (23:30)
[2021-07-13] MEDS ORDERED: ONDANSETRON 4 MG/2 ML VIAL IV PRN (23:30)
[2021-07-14] MEDS ORDERED: BLOOD SUGAR DIAGNOSTIC 1 EACH STRIP VI SCH
--- NOTE | 2021-07-14 03:30 | NUR ---
03:30 Received report from ER nurse
--- NOTE | 2021-07-14 04:00 | NUR ---
Pt placed on bed hart to collect specimen of urine for UA. Pt was completely dry and unable to void. In and out cath never performed, EDMD told to cancel order.
--- NOTE | 2021-07-14 04:40 | NUR ---
Received patient via [facility]. KWAKU. [place] speaking, as per reported by ER. Established nurse-patient rapport. Oriented to room, bed, and call light button. Attached to monitor car operator, showing A-fib, 75bpm. V/S are within normal limits. Safety and comfort measures initiated. Will continue to monitor.
--- NOTE | 2021-07-14 04:40 | NUR ---
Pt transported to thrid floor room 311 via gurney without difficulty or incident, accompanied by me. Pt AAOx4 with good color, temp and appearance. VSS, PE wnl, strong and equal automatic typewriter inspector strength bilat, strong pulses x 4ext. Pt in good spirits aeb smiling and laughing during transport. Pt has jovial demeanor.
[2021-07-14] MEDS: PANTOPRAZOLE SODIUM 40 MG TABLET.DR PO SCH (06:42)
[2021-07-14 06:46] LABS: HEMATOCRIT 39.8 % (31.2-41.9); MEAN CORPUSCULAR HEMOGLOBIN 30.6 uug (24.7-32.8); MEAN CORPUSCULAR VOLUME 92.5 fL (75.5-95.3); PLATELET COUNT (AUTO) 274 K/uL (179-408)
[2021-07-14 07:08] LABS: CREATININE 0.8 mg/dL (0.6-1.3); MAGNESIUM 2.5 mg/dL (1.8-2.4); PHOSPHOROUS 3.1 mg/dL (2.5-4.9); POTASSIUM 3.8 mmol/L (3.5-5.1)
[2021-07-14] MEDS: BLOOD SUGAR DIAGNOSTIC 1 EACH STRIP VI SCH ×4 (07:39→20:32)
--- NOTE | 2021-07-14 07:43 | NUR ---
All due medications were given. Pt able to swallow whole pills. Accuchek taken. BS of 93mg/dl. Will endorse today shift .
[2021-07-14] MEDS: ASPIRIN 325 MG TABLET PO SCH (08:03)
[2021-07-14 08:19] LABS: *BILIRUBIN,URIN NEGATIVE (NEGATIVE); *CLARITY,URINE CLEAR (CLEAR); *COLOR,URINE YELLOW (YELLOW); *KETONES,URINE NEGATIVE (NEGATIVE); *UROBILINOGEN,URINE 0.2 E.U./dl (NORMAL); LEUKOCYTE ESTERASE ,URINE NEGATIVE (NEGATIVE); NITRITE, URINE NEGATIVE (NEGATIVE); UGLUCOSE NEGATIVE (NEGATIVE)
[2021-07-14] MEDS: METHIMAZOLE 5 MG TABLET PO SCH ×2 (08:31→16:53)
[2021-07-14] MEDS: DILTIAZEM HCL SR 60 MG CAP.SR.12H PO SCH ×2 (08:36→20:24)
[2021-07-14 09:31] LABS: *BLOOD, URINE TRACE (NEGATIVE)
[2021-07-14 10:32] LABS: BACTERIA,URINE FEW /HPF (NONE SEEN); RBC,URINE 0-3 /HPF (0-3); SQUAMOUS EPITHELIAL CELL,UR FEW /HPF (NONE SEEN); URINE AMORPHOUS URATE MODERATE /HPF; WBC,URINE 0-3 /HPF (0-3)
[2021-07-14 11:17] VITALS: BP 103/60
--- NOTE | 2021-07-14 13:36 | NUR ---
Social Work Consult Social work consult was requested for stroke. SW has attempted to talk with patient twice but has been sleeping both times. During second visit, SW and nurse tried to wake patient up but she would not wake up. SW spoke with patients daughter Lizz Scott [phone], and gathered that she is the primary decision maker for patient. Per patients daughter, discharge plan is to have patient go to a [facility]. Plan: SW will continue to follow up with patient to provide stroke resources. SW will administer the PHQ9 when patient is more awake.
[2021-07-14 16:14] VITALS: BP 115/69
[2021-07-14] MEDS: ATORVASTATIN 40 MG TABLET PO SCH (20:24)
[2021-07-14 20:46] VITALS: BP 116/61
[2021-07-15 04:47] VITALS: BP 129/63
[2021-07-15] MEDS: PANTOPRAZOLE SODIUM 40 MG TABLET.DR PO SCH (06:34)
[2021-07-15] MEDS: BLOOD SUGAR DIAGNOSTIC 1 EACH STRIP VI SCH (06:35)
--- NOTE | 2021-07-15 06:44 | NUR ---
Patient asleep in bed. Easily arousable. Slept well throughout the night. Denies any pain or discomfort. All needs attended. Will continue to monitor and assess.
[2021-07-15] MEDS: DILTIAZEM HCL SR 60 MG CAP.SR.12H PO SCH ×2 (08:03→20:22)
[2021-07-15] MEDS: ASPIRIN 325 MG TABLET PO SCH (08:03)
[2021-07-15] MEDS: METHIMAZOLE 5 MG TABLET PO SCH ×2 (08:03→16:28)
[2021-07-15 11:50] VITALS: BP 104/65
[2021-07-15 15:48] VITALS: BP 111/57
[2021-07-15] MEDS: ATORVASTATIN 40 MG TABLET PO SCH (20:11)
[2021-07-15 20:12] VITALS: BP 103/54
[2021-07-16 04:12] VITALS: BP 113/67
[2021-07-16] MEDS: PANTOPRAZOLE SODIUM 40 MG TABLET.DR PO SCH (06:30)
--- NOTE | 2021-07-16 07:26 | NUR ---
Received asleep in bed, easily arousable. On room air. No signs of acute distress. IV access patent and intact. Bed locked and in low position. Call light within reach. Bed alarm on. Will continue to monitor.
[2021-07-16] MEDS: METHIMAZOLE 5 MG TABLET PO SCH ×2 (08:16→16:12)
[2021-07-16] MEDS: ASPIRIN 325 MG TABLET PO SCH (08:16)
[2021-07-16 09:11] VITALS: BP 135/66
[2021-07-16] MEDS: DILTIAZEM HCL SR 60 MG CAP.SR.12H PO SCH ×2 (09:48→20:58)
[2021-07-16 12:53] VITALS: BP 138/75
[2021-07-16 17:36] VITALS: BP 121/54
--- NOTE | 2021-07-16 18:15 | NUR ---
Patient resting in bed. OAx3-4. On room air. No signs of acute distress. Patient denies pain/ discomfort. Patient denies SOB/ . Compliant with medications and care. IV access patent and intact. Needs anticipated and met. Bed locked and in low position. Call light within reach. Bed alarm on for safety. Will endorse to incoming shift for continuity of care.
--- NOTE | 2021-07-16 19:30 | NUR ---
RECEIVED PT AWAKE, ALERT AND ORIENTED X 4. PT IN NO ACUTE DISTRESS. IV INTACT. SAFETY AND COMFORT PROVIDED. WILL CONTINUE TO MONITOR.
[2021-07-16 20:00] VITALS: BP 137/58
[2021-07-16] MEDS: ATORVASTATIN 40 MG TABLET PO SCH (20:10)
--- NOTE | 2021-07-16 20:10 | NUR ---
PT GIVEN TYLENOL 650 MG PRN PER PT REQUEST. PT STABLE. WILL CONTINUE TO MONITOR.
[2021-07-17 04:00] VITALS: BP 127/68
--- NOTE | 2021-07-17 05:46 | NUR ---
PT SLEPT INTERMITTENTLY. PT IN NO ACUTE DISTRESS. PRESCRIBED MEDICATION GIVEN AND PT TOLERATED IT WELL. PT IV INTACT.SAFETY AND COMFORT PROVIDED. ALL NEEDS ARE MET. WILL ENDORSE TO INCOMING NURSE FOR CONTINUITY OF CARE.
[2021-07-17] MEDS: PANTOPRAZOLE SODIUM 40 MG TABLET.DR PO SCH (06:52)
[2021-07-17] MEDS: METHIMAZOLE 5 MG TABLET PO SCH ×2 (08:41→16:15)
[2021-07-17] MEDS: ASPIRIN 325 MG TABLET PO SCH (08:41)
[2021-07-17] MEDS: DILTIAZEM HCL SR 60 MG CAP.SR.12H PO SCH (08:43)
[2021-07-17 11:44] VITALS: BP 99/49
--- NOTE | 2021-07-17 13:30 | NUR ---
Patient is received awake in her room. A/O X 3 - 4 to person, place. Pt. affect is cooperative, preoccupied, calm. Pt. is compliant with medications. Pt. requires more than minimal assistance with ADL. Fall and safety precautions implemented.
--- NOTE | 2021-07-17 14:43 | NUR ---
Social Work Consult Social work consult was requested for stroke. Patient is alert and oriented x3. Patient presents with a depressed mood and flat affect. Patient spoke very softly and spoke limited Samoan. Patients primary language is Farsi. Patient informed SW that she has had a hx of strokes. SW spoke with patient about the different emotions she would have after a stroke as well as warning signs of a stroke. SW provided patient with educational packet on stroke. SW completed the PHQ9 in [employer] Patients PHQ9 score was a 4.
--- NOTE | 2021-07-17 15:12 | NUR ---
report called to DIANE Jimenez at [facility]. pt going to room 513A, pickling operator by [facility] at 1630. will notify Tony of pickling operator confirmation.
[2021-07-17 16:00] VITALS: BP 126/59
--- NOTE | 2021-07-17 17:17 | NUR ---
Received orders from Dr. Fuentes to discharge this patient. Pt. was discharged to [facility]. Pt. left this building at 17:15 in a stretcher with [facility] transportation. Pt. is alert, oriented X 3 to person, place. Pt. affect is cooperative, calm, quiet. Pt. is compliant to medications. All belongings were returned to the patient as listed, except phone city auditor since her daughter picked it up earlier. Pt. signed and agreed to all discharge documentation. Education and information about medications were provided.
== END 2021-07-17 17:15 | DRG 552 ==
LOC: ER 20:42 → TELE3 07-14 04:18 → MEDSURG3 07-14 17:20
PROVIDERS: ADMIT Internal Medicine; ATTEND Internal Medicine
DX: M47.26 Other spondylosis with radiculopathy, lumbar region (principal); M48.061 Spinal stenosis, lumbar region without neurogenic claudication; Z86.73 Personal history of transient ischemic attack (TIA), and cerebral infarction without residual deficits; E83.52 Hypercalcemia; E05.90 Thyrotoxicosis, unspecified without thyrotoxic crisis or storm; E78.5 Hyperlipidemia, unspecified; G62.9 Polyneuropathy, unspecified; I10 Essential (primary) hypertension; I25.10 Atherosclerotic heart disease of native coronary artery without angina pectoris; I48.0 Paroxysmal atrial fibrillation; Z20.822 Contact with and (suspected) exposure to COVID-19; I25.2 Old myocardial infarction; Z79.01 Long term (current) use of anticoagulants; R53.1 Weakness
CPT/HCPCS: 36415; 70030-TC; 70450; 71045; 72131; 73110; 83735; 84100; 84443; 85025; 85730; 93005; 93307; 97161; A4663; G0378

== ENCOUNTER 2021-12-25 20:38 | Inpatient (IN) | payer MEDICARE, OTHER ==
[~2021-12-25] VITALS: Ht 160 cm; Wt 77.6 kg
--- NOTE | 2021-12-25 20:10 | NUR ---
Received newly admitted patient from [facility] via gurney, transferred to bed and made comfortable. PAtient alert, and oriented 3-4, Farsi speaking but able to speak and understand simple [place]. Breathing on room air, no complaint of pain, with bruises on both arms, skin at the back and buttocks is clean and intact. Routine admission care done. Safety precautions provided, Oriented for the use of call light.
[2021-12-25 20:30] VITALS: BP 148/75
[~2021-12-25 20:38] MED LIST changes: -ACET-2154 PO; -PREG50CA PO; -SENN-18 PO; -TOLT4CAP PO
[2021-12-25] MEDS ORDERED: REMEDY ESSENTIAL ZINC PASTE 113 GM TOP PRN (21:15)
[2021-12-25] MEDS ORDERED: ZOLPIDEM 5 MG TABLET PO PRN (21:30)
[2021-12-25] MEDS ORDERED: REMEDY ESSENTIAL ZINC PASTE 113 GM TP PRN (21:30)
[2021-12-25] MEDS ORDERED: HYDROCODONE/APAP 5-325MG TABLET PO PRN (21:30)
[2021-12-25] MEDS ORDERED: MAGNESIUM HYDROXIDE 30 ML LIQUID UDC PO PRN (21:30)
[2021-12-25] MEDS ORDERED: ONDANSETRON 4 MG/2 ML VIAL IV PRN (21:30)
[2021-12-25] MEDS ORDERED: ACETAMINOPHEN 325 MG TABLET PO PRN (21:30)
[2021-12-26 04:00] VITALS: BP 115/47
--- NOTE | 2021-12-26 05:30 | NUR ---
Patient slept well, no complaint of pain, no shortness of breath. MRSA done and sent to lab, pictures taken for bruises on both arms. Compliant with medications. Repositioned for comfort. Patient in fair condition.
[2021-12-26] MEDS: PANTOPRAZOLE SODIUM 40 MG TABLET.DR PO SCH (06:22)
[2021-12-26 06:38] LABS: HEMATOCRIT 37.7 % (31.2-41.9); MEAN CORPUSCULAR HEMOGLOBIN 30.6 uug (24.7-32.8); MEAN CORPUSCULAR VOLUME 88.7 fL (75.5-95.3); PLATELET COUNT (AUTO) 247 K/uL (179-408)
[2021-12-26 06:57] LABS: MAGNESIUM 2.1 mg/dL (1.8-2.4); PHOSPHOROUS 3.1 mg/dL (2.5-4.9); POTASSIUM 4.5 mmol/L (3.5-5.1)
[2021-12-26 08:28] VITALS: BP 136/64
[2021-12-26] MEDS ORDERED: DILTIAZEM HCL 120 MG PO SCH (09:00)
[2021-12-26] MEDS: APIXABAN 5 MG TABLET PO SCH ×2 (09:43→17:21)
[2021-12-26] MEDS: METHIMAZOLE 5 MG TABLET PO SCH ×2 (09:48→17:21)
--- NOTE | 2021-12-26 14:49 | NUR ---
Clinical Social Work Note Patient is an 86 year old Croatian woman who speaks Farsi and minimal Panamanian. Patient suffered a CVA on SaturdayDecember 16 per daughter. Patient calls her daughter and reported that she had vertigo and was vomiting. An MRI confirmed a right lacunar infarct. Patient lives with her son, Stalin, at [address], [place] [id number] and will return there once stable. pharmaceutical worker spoke with Victorino, daughter at ([phone]) provided history on patient. Family are supportive and want patient to receive intensive rehab. so that she can return to her baseline level functioning. Patient is motivated to accept rehab. and is participating with PT and other therapies. pharmaceutical worker will follow up and provide support and assistance as needed.
[2021-12-26 16:20] VITALS: BP 101/53
[2021-12-26 20:12] VITALS: BP 131/56
[2021-12-26] MEDS: DOCUSATE SODIUM 100 MG CAPSULE PO SCH (20:40)
[2021-12-26] MEDS: ATORVASTATIN 40 MG TABLET PO SCH (20:41)
[2021-12-26] MEDS: DILTIAZEM HCL CD 300 MG CAP.SR.24H PO SCH (20:41)
[2021-12-26] MEDS ORDERED: Medication Not On Formulary EA (Atorvastatin Calcium (Lipitor) 80 MG) PO SCH (21:00)
[2021-12-27 04:52] VITALS: BP 121/60
[2021-12-27] MEDS: PANTOPRAZOLE SODIUM 40 MG TABLET.DR PO SCH (06:00)
[2021-12-27] MEDS ORDERED: PANTOPRAZOLE SODIUM 40 MG TABLET.DR PO SCH (07:30)
[2021-12-27 08:00] VITALS: BP 106/55
[2021-12-27] MEDS: METHIMAZOLE 5 MG TABLET PO SCH ×2 (09:09→16:21)
[2021-12-27] MEDS: APIXABAN 5 MG TABLET PO SCH ×2 (09:09→16:21)
--- NOTE | 2021-12-27 12:19 | NUR ---
INTERDISCIPLINARY TEAM CONFERENCE
[2021-12-27 16:00] VITALS: BP 131/79
--- NOTE | 2021-12-27 18:38 | NUR ---
No concerns identified during the shift. denies pain. remained stable. safety measures maintained. kept call light within reach. frequent checks done. all due meds given. all needs attended. will endorse to the next shift for continuity of care.
[2021-12-27] MEDS: ATORVASTATIN 40 MG TABLET PO SCH (20:56)
[2021-12-27] MEDS: DOCUSATE SODIUM 100 MG CAPSULE PO SCH (20:56)
[2021-12-27] MEDS: DILTIAZEM HCL CD 300 MG CAP.SR.24H PO SCH (20:57)
[2021-12-28 04:00] VITALS: BP 150/78
[2021-12-28] MEDS: PANTOPRAZOLE SODIUM 40 MG TABLET.DR PO SCH (06:27)
[2021-12-28 08:00] VITALS: BP_SYST 112; BP_SYST 135; BP_DIAS 55; BP_DIAS 67
[2021-12-28] MEDS: METHIMAZOLE 5 MG TABLET PO SCH ×2 (09:43→17:12)
[2021-12-28] MEDS: APIXABAN 5 MG TABLET PO SCH ×2 (09:46→17:14)
--- NOTE | 2021-12-28 09:54 | NUR ---
INDIVIDUALIZED PLAN OF CARE
--- NOTE | 2021-12-28 11:40 | NUR ---
Receive patient resting in bed AAOX3 ,Farsi speaking able to let simple needs known no complaint of pain, no shortness of breath. bruises on both arms skin intact. Compliant with medications. Repositioned for comfort. incontinent of B &B. Up with PT ambulating with FWW tolerated well
[2021-12-28 16:00] VITALS: BP 134/77
[2021-12-28 20:00] VITALS: BP 125/83
[2021-12-28] MEDS: DOCUSATE SODIUM 100 MG CAPSULE PO SCH (20:12)
[2021-12-28] MEDS: DILTIAZEM HCL CD 300 MG CAP.SR.24H PO SCH (20:12)
[2021-12-28] MEDS: ATORVASTATIN 40 MG TABLET PO SCH (20:13)
[2021-12-29 04:33] VITALS: BP 114/60
[2021-12-29] MEDS: PANTOPRAZOLE SODIUM 40 MG TABLET.DR PO SCH (05:57)
[2021-12-29 07:59] VITALS: BP 122/57
[2021-12-29] MEDS: METHIMAZOLE 5 MG TABLET PO SCH ×2 (08:57→17:16)
[2021-12-29] MEDS: APIXABAN 5 MG TABLET PO SCH ×2 (08:59→17:17)
--- NOTE | 2021-12-29 10:48 | NUR ---
Receive patient resting in bed AAOX 3 to 4 ,Farsi speaking able to let simple needs known,calm no complaint of pain, no shortness of breath. bruises on both arms skin intact. Compliant with medications. Repositioned for comfort. incontinent of B &B. Up with PT to BR ambulating with FWW tolerated well will continue to monitor for comfort and safety
[2021-12-29 16:09] VITALS: BP 114/58
[2021-12-29 20:09] VITALS: BP 116/57
[2021-12-29] MEDS: DOCUSATE SODIUM 100 MG CAPSULE PO SCH (20:32)
[2021-12-29] MEDS: DILTIAZEM HCL CD 300 MG CAP.SR.24H PO SCH (20:32)
[2021-12-29] MEDS: ATORVASTATIN 40 MG TABLET PO SCH (20:32)
[2021-12-30 04:32] VITALS: BP 104/67
--- NOTE | 2021-12-30 04:48 | NUR ---
Patient slept well during the shift, no complaint of pain, no shortness of breath. Compliant with medications.frequent visuals checks done, turned and repositioned for comfort.safety measures in place, bed in low position, alarms cash applications coordinator light and all frequent items needed it within reached.
[2021-12-30] MEDS: PANTOPRAZOLE SODIUM 40 MG TABLET.DR PO SCH (06:15)
[2021-12-30 08:06] VITALS: BP 133/57
[2021-12-30] MEDS: METHIMAZOLE 5 MG TABLET PO SCH ×2 (08:26→16:25)
[2021-12-30] MEDS: APIXABAN 5 MG TABLET PO SCH ×2 (08:27→16:26)
[2021-12-30 10:05] LABS: HEMATOCRIT 43.8 % (31.2-41.9); MEAN CORPUSCULAR HEMOGLOBIN 30.3 uug (24.7-32.8); PLATELET COUNT (AUTO) 300 K/uL (179-408)
[2021-12-30 10:12] LABS: *BILIRUBIN,URIN NEGATIVE (NEGATIVE); *BLOOD, URINE NEGATIVE (NEGATIVE); *CLARITY,URINE TURBID (CLEAR); *COLOR,URINE YELLOW (YELLOW); *KETONES,URINE NEGATIVE (NEGATIVE); *UROBILINOGEN,URINE 0.2 E.U./dl (NORMAL); LEUKOCYTE ESTERASE ,URINE TRACE (NEGATIVE); NITRITE, URINE NEGATIVE (NEGATIVE); PH,URINE 7.5 (5.0-8.0); UGLUCOSE NEGATIVE (NEGATIVE)
[2021-12-30 10:19] LABS: BILIRUBIN,TOTAL 0.5 mg/dL (0.2-1.0); CREATININE 1.2 mg/dL (0.6-1.3); POTASSIUM 4.4 mmol/L (3.5-5.1); TOTAL PROTEIN, SERUM 7.1 g/dL (6.4-8.2)
[2021-12-30 12:40] LABS: SQUAMOUS EPITHELIAL CELL,UR FEW /HPF (NONE SEEN)
[2021-12-30 12:43] LABS: URINE AMORPHOUS PHOSPHATES MANY /HPF
[2021-12-30 12:45] LABS: BACTERIA,URINE FEW /HPF (NONE SEEN); MUCUS,URINE NONE SEEN /LPF (0-FEW); RBC,URINE NONE SEEN /HPF (0-3); WBC,URINE NONE SEEN /HPF (0-3)
[2021-12-30 16:01] VITALS: BP 117/67
[2021-12-30 20:10] VITALS: BP 125/82
[2021-12-30] MEDS: DOCUSATE SODIUM 100 MG CAPSULE PO SCH (20:27)
[2021-12-30] MEDS: ATORVASTATIN 40 MG TABLET PO SCH (20:27)
[2021-12-30] MEDS: DILTIAZEM HCL CD 300 MG CAP.SR.24H PO SCH (20:28)
[2021-12-31 04:00] VITALS: BP 99/52
[2021-12-31] MEDS: PANTOPRAZOLE SODIUM 40 MG TABLET.DR PO SCH (06:23)
[2021-12-31] MEDS: METHIMAZOLE 5 MG TABLET PO SCH ×2 (08:05→16:42)
[2021-12-31] MEDS: APIXABAN 5 MG TABLET PO SCH ×2 (08:05→16:25)
[2021-12-31 08:48] VITALS: BP 121/64
[2021-12-31 16:36] VITALS: BP 122/76
[2021-12-31 20:00] VITALS: BP 120/73
[2021-12-31] MEDS: DOCUSATE SODIUM 100 MG CAPSULE PO SCH (21:14)
[2021-12-31] MEDS: ATORVASTATIN 40 MG TABLET PO SCH (21:14)
[2021-12-31] MEDS: DILTIAZEM HCL CD 300 MG CAP.SR.24H PO SCH (21:15)
[2022-01-01 04:00] VITALS: BP 126/68
--- NOTE | 2022-01-01 05:35 | NUR ---
Pt remained stable throughout the night. Slept well. No signs of acute distress noted. Compliant with medication and care. Call lights within reach. Safety measures maintained.
[2022-01-01] MEDS: PANTOPRAZOLE SODIUM 40 MG TABLET.DR PO SCH (06:01)
[2022-01-01 08:00] VITALS: BP 119/69
[2022-01-01] MEDS: METHIMAZOLE 5 MG TABLET PO SCH ×2 (08:12→16:44)
[2022-01-01] MEDS: APIXABAN 5 MG TABLET PO SCH ×2 (08:14→16:44)
[2022-01-01 16:50] VITALS: BP 126/65
[2022-01-01 20:00] VITALS: BP 138/52
[2022-01-01] MEDS: DOCUSATE SODIUM 100 MG CAPSULE PO SCH (20:03)
[2022-01-01] MEDS: ATORVASTATIN 40 MG TABLET PO SCH (20:03)
[2022-01-01] MEDS: DILTIAZEM HCL CD 300 MG CAP.SR.24H PO SCH (20:03)
[2022-01-02 04:00] VITALS: BP 95/56
[2022-01-02] MEDS: PANTOPRAZOLE SODIUM 40 MG TABLET.DR PO SCH (06:06)
[2022-01-02 07:30] VITALS: BP 126/54
[2022-01-02] MEDS: APIXABAN 5 MG TABLET PO SCH ×2 (09:49→17:34)
[2022-01-02] MEDS: METHIMAZOLE 5 MG TABLET PO SCH ×2 (09:49→17:32)
[2022-01-02 16:00] VITALS: BP 133/68
[2022-01-02 20:00] VITALS: BP 131/74
[2022-01-02] MEDS: DOCUSATE SODIUM 100 MG CAPSULE PO SCH (20:48)
[2022-01-02] MEDS: ATORVASTATIN 40 MG TABLET PO SCH (20:48)
[2022-01-02] MEDS: DILTIAZEM HCL CD 300 MG CAP.SR.24H PO SCH (20:49)
[2022-01-03 04:00] VITALS: BP 112/60
[2022-01-03] MEDS: PANTOPRAZOLE SODIUM 40 MG TABLET.DR PO SCH (06:17)
[2022-01-03 07:54] VITALS: BP 130/63
[2022-01-03] MEDS: APIXABAN 5 MG TABLET PO SCH ×2 (09:02→17:32)
[2022-01-03] MEDS: METHIMAZOLE 5 MG TABLET PO SCH ×2 (09:08→17:29)
--- NOTE | 2022-01-03 10:08 | NUR ---
INTERDISCIPLINARY TEAM CONFERENCE
--- NOTE | 2022-01-03 10:30 | NUR ---
Offered pain medicine after physical therapy but patient refused saying I don't have pain at this time. Assisted with her needs. Call light and frequently used items placed within reach.
[2022-01-03 15:07] VITALS: BP 123/66
--- NOTE | 2022-01-03 19:15 | NUR ---
Received patient on bed awake, alert x3-4, no shortness of breath noted, no complaint of pain. Safety precautions provided, call light placed within reach.
[2022-01-03 20:00] VITALS: BP 111/64
[2022-01-03] MEDS: DILTIAZEM HCL CD 300 MG CAP.SR.24H PO SCH (21:00)
[2022-01-03] MEDS: DOCUSATE SODIUM 100 MG CAPSULE PO SCH (22:01)
[2022-01-03] MEDS: ATORVASTATIN 40 MG TABLET PO SCH (22:02)
[2022-01-04 04:00] VITALS: BP 145/83
--- NOTE | 2022-01-04 05:46 | NUR ---
Patient slept well, no complaint of pain, no significant event within the shift. Patient in fair condition.
[2022-01-04] MEDS: PANTOPRAZOLE SODIUM 40 MG TABLET.DR PO SCH (06:03)
[2022-01-04 07:57] VITALS: BP 137/94
[2022-01-04] MEDS: METHIMAZOLE 5 MG TABLET PO SCH ×2 (08:19→17:16)
[2022-01-04] MEDS: APIXABAN 5 MG TABLET PO SCH ×2 (08:20→17:19)
[2022-01-04 15:05] VITALS: BP 123/67
--- NOTE | 2022-01-04 18:00 | NUR ---
Patient remains alert, oriented x 3, not in any form of distress on room air. She denies any pain or discomfort. Assisted with her needs promptly. Call light and frequently used items placed within reach.
[2022-01-04 20:00] VITALS: BP 114/60
[2022-01-04] MEDS: DOCUSATE SODIUM 100 MG CAPSULE PO SCH (20:26)
[2022-01-04] MEDS: ATORVASTATIN 40 MG TABLET PO SCH (20:26)
[2022-01-04] MEDS: DILTIAZEM HCL CD 300 MG CAP.SR.24H PO SCH (20:27)
[2022-01-05 04:00] VITALS: BP 129/70
[2022-01-05] MEDS: PANTOPRAZOLE SODIUM 40 MG TABLET.DR PO SCH (05:49)
[2022-01-05 07:57] VITALS: BP 132/68
--- NOTE | 2022-01-05 08:00 | NUR ---
Received sleeping easily arousable. No ss of pain or sob, no facial grimacing. Breathing non labored. Appears comfortable. Safety measures in place.
[2022-01-05] MEDS: APIXABAN 5 MG TABLET PO SCH ×2 (08:56→17:28)
[2022-01-05] MEDS: METHIMAZOLE 5 MG TABLET PO SCH ×2 (08:56→17:26)
[2022-01-05 16:05] VITALS: BP 141/69
--- NOTE | 2022-01-05 19:00 | NUR ---
resting. no ss of pain or sob. comfortable. safety measures kept.
[2022-01-05 20:00] VITALS: BP 127/74
[2022-01-05] MEDS: DOCUSATE SODIUM 100 MG CAPSULE PO SCH (20:26)
[2022-01-05] MEDS: ATORVASTATIN 40 MG TABLET PO SCH (20:26)
[2022-01-05] MEDS: DILTIAZEM HCL CD 300 MG CAP.SR.24H PO SCH (20:27)
[2022-01-06 04:25] VITALS: BP 105/65
[2022-01-06] MEDS: PANTOPRAZOLE SODIUM 40 MG TABLET.DR PO SCH (06:06)
[2022-01-06 08:00] VITALS: BP 114/57
[2022-01-06] MEDS: METHIMAZOLE 5 MG TABLET PO SCH ×2 (08:53→17:49)
[2022-01-06] MEDS: APIXABAN 5 MG TABLET PO SCH ×2 (08:55→17:49)
[2022-01-06] MEDS ORDERED: LIDOCAINE HCL 1% 20 ML VIAL IJ PRN (12:15)
[2022-01-06] MEDS ORDERED: TRIAMCINOLONE ACETONIDE 40 MG/1 ML VIAL IM ONE (12:15)
[2022-01-06 16:17] VITALS: BP 118/53
--- NOTE | 2022-01-06 19:15 | NUR ---
Received patient on bed, awake, no compliant of pain. no shortness of breath noted. Requested for food, food given, able to ate 100%. safety precautions provided. Call light placed within reach.
[2022-01-06 20:55] VITALS: BP 153/93
[2022-01-06] MEDS: DOCUSATE SODIUM 100 MG CAPSULE PO SCH (20:58)
[2022-01-06] MEDS: DILTIAZEM HCL CD 300 MG CAP.SR.24H PO SCH (20:58)
[2022-01-06] MEDS: ATORVASTATIN 40 MG TABLET PO SCH (21:00)
[2022-01-07 04:42] VITALS: BP 105/46
[2022-01-07] MEDS: PANTOPRAZOLE SODIUM 40 MG TABLET.DR PO SCH (06:25)
--- NOTE | 2022-01-07 07:20 | NUR ---
Patient slept well, no complaint of pain, no shortness of breath. Patient in fair condition.
[2022-01-07 08:24] VITALS: BP 113/64
[2022-01-07] MEDS: METHIMAZOLE 5 MG TABLET PO SCH ×2 (09:32→17:42)
[2022-01-07] MEDS: APIXABAN 5 MG TABLET PO SCH ×2 (09:33→17:41)
[2022-01-07 16:00] VITALS: BP 119/67
--- NOTE | 2022-01-07 19:15 | NUR ---
Received patient on bed, not in respiratory distress, no complaint of pain. With ongoing jevity feeding via pegtube at 55c/hr, with colostomy intact. Safety precautions provided, call light plced within reach. Addendum: 01/07/22 at 2020 by TENA WERNER RN RN ERROR documentation/ wrong patient.
--- NOTE | 2022-01-07 19:20 | NUR ---
Received patient on bed, awake, alert orientedx3-4, no shortness of breath noted. no complaint of pain. safety precautions provided. call light placed within reach.
[2022-01-07 20:20] VITALS: BP 113/60
[2022-01-07] MEDS: DILTIAZEM HCL CD 300 MG CAP.SR.24H PO SCH (21:12)
[2022-01-07] MEDS: DOCUSATE SODIUM 100 MG CAPSULE PO SCH (21:13)
[2022-01-07] MEDS: ATORVASTATIN 40 MG TABLET PO SCH (21:17)
[2022-01-08 04:21] VITALS: BP 122/69
--- NOTE | 2022-01-08 05:36 | NUR ---
Patient slept well, no complaint of pain, no shortness of breath, no significant event within the shift. Patient in fair condition.
[2022-01-08] MEDS: PANTOPRAZOLE SODIUM 40 MG TABLET.DR PO SCH (06:14)
[2022-01-08] MEDS: APIXABAN 5 MG TABLET PO SCH ×2 (08:21→16:33)
[2022-01-08] MEDS: METHIMAZOLE 5 MG TABLET PO SCH ×2 (08:21→16:32)
[2022-01-08 08:41] VITALS: BP 131/57
[2022-01-08] MEDS: MAGNESIUM HYDROXIDE 30 ML LIQUID UDC PO PRN (13:56)
--- NOTE | 2022-01-08 14:55 | NUR ---
att 11am, during PT sessions patient was noted with increased weakness on the left leg, and reported pain, she was limping while walking. Noted with functional decline compared yesterday per PT. No drooling, able to follow instructions, able to dairy feed sales consultant, both upper and lower able to do range of motion. made aware.
[2022-01-08 16:00] VITALS: BP 129/60
--- NOTE | 2022-01-08 16:07 | NUR ---
At pm OT session, patient was able to walk with a walker with standby assist, no difficulty noted, weakness was improved. will continue to monitor.
--- NOTE | 2022-01-08 19:31 | NUR ---
Patient remained stable during the shift. denies discomfort at the end of the shift. will endorse to the next shift for continuity of care.
[2022-01-08 20:00] VITALS: BP 133/72
[2022-01-08] MEDS: DOCUSATE SODIUM 100 MG CAPSULE PO SCH (21:41)
[2022-01-08] MEDS: ATORVASTATIN 40 MG TABLET PO SCH (21:41)
[2022-01-08] MEDS: DILTIAZEM HCL CD 300 MG CAP.SR.24H PO SCH (21:42)
[2022-01-09 04:00] VITALS: BP 101/54
[2022-01-09] MEDS: PANTOPRAZOLE SODIUM 40 MG TABLET.DR PO SCH (06:17)
[2022-01-09 08:00] VITALS: BP 110/52
[2022-01-09] MEDS: METHIMAZOLE 5 MG TABLET PO SCH ×2 (09:06→17:48)
[2022-01-09] MEDS: APIXABAN 5 MG TABLET PO SCH ×2 (09:08→17:52)
[2022-01-09 16:00] VITALS: BP 118/56
[2022-01-09 20:54] VITALS: BP 119/64
[2022-01-09] MEDS: ATORVASTATIN 40 MG TABLET PO SCH (21:27)
[2022-01-09] MEDS: DOCUSATE SODIUM 100 MG CAPSULE PO SCH (21:28)
[2022-01-09] MEDS: DILTIAZEM HCL CD 300 MG CAP.SR.24H PO SCH (21:28)
[2022-01-10 04:50] VITALS: BP 122/58
[2022-01-10] MEDS: PANTOPRAZOLE SODIUM 40 MG TABLET.DR PO SCH (05:52)
[2022-01-10 07:46] VITALS: BP 91/65
[2022-01-10] MEDS: METHIMAZOLE 5 MG TABLET PO SCH ×2 (08:42→16:52)
[2022-01-10] MEDS: APIXABAN 5 MG TABLET PO SCH ×2 (08:45→16:58)
--- NOTE | 2022-01-10 12:44 | NUR ---
INTERDISCIPLINARY TEAM CONFERENCE
[2022-01-10 16:02] VITALS: BP 147/74
[2022-01-10 20:00] VITALS: BP 136/72
[2022-01-10] MEDS: ATORVASTATIN 40 MG TABLET PO SCH (20:27)
[2022-01-10] MEDS: DILTIAZEM HCL CD 300 MG CAP.SR.24H PO SCH (20:27)
[2022-01-10] MEDS: DOCUSATE SODIUM 100 MG CAPSULE PO SCH (20:27)
[2022-01-11 04:00] VITALS: BP 125/67
[2022-01-11] MEDS: PANTOPRAZOLE SODIUM 40 MG TABLET.DR PO SCH (06:04)
[2022-01-11 08:00] VITALS: BP 137/66
[2022-01-11] MEDS: MAGNESIUM HYDROXIDE 30 ML LIQUID UDC PO PRN (08:05)
[2022-01-11] MEDS: APIXABAN 5 MG TABLET PO SCH ×2 (08:06→16:14)
[2022-01-11] MEDS: METHIMAZOLE 5 MG TABLET PO SCH ×2 (08:06→16:14)
[2022-01-11 16:00] VITALS: BP 121/64
[2022-01-11] MEDS: ATORVASTATIN 40 MG TABLET PO SCH (20:32)
[2022-01-11] MEDS: DILTIAZEM HCL CD 300 MG CAP.SR.24H PO SCH (20:33)
[2022-01-11] MEDS: DOCUSATE SODIUM 100 MG CAPSULE PO SCH (20:33)
[2022-01-11 20:36] VITALS: BP 130/72
[2022-01-12 04:41] VITALS: BP 132/75
[2022-01-12] MEDS: PANTOPRAZOLE SODIUM 40 MG TABLET.DR PO SCH (06:01)
--- NOTE | 2022-01-12 06:18 | NUR ---
Pt slept well throughout the night, easily arousable for care. Denies pain and discomfort. No significant changes noted. All needs attended. Call light placed within reach. Will endorse to next shift.
[2022-01-12 07:44] VITALS: BP 138/68
[2022-01-12] MEDS: METHIMAZOLE 5 MG TABLET PO SCH ×2 (09:59→16:53)
[2022-01-12] MEDS: APIXABAN 5 MG TABLET PO SCH ×2 (10:03→16:56)
[2022-01-12 15:10] VITALS: BP 129/68
[2022-01-12] MEDS: DOCUSATE SODIUM 100 MG CAPSULE PO SCH (20:32)
[2022-01-12] MEDS: ATORVASTATIN 40 MG TABLET PO SCH (20:32)
[2022-01-12] MEDS: DILTIAZEM HCL CD 300 MG CAP.SR.24H PO SCH (20:33)
[2022-01-12 20:38] VITALS: BP 120/70
[2022-01-13 04:36] VITALS: BP 108/56
[2022-01-13] MEDS: PANTOPRAZOLE SODIUM 40 MG TABLET.DR PO SCH (06:01)
[2022-01-13 07:33] VITALS: BP 139/67
[2022-01-13] MEDS: METHIMAZOLE 5 MG TABLET PO SCH ×2 (07:51→17:33)
[2022-01-13] MEDS: APIXABAN 5 MG TABLET PO SCH ×2 (07:52→17:33)
[2022-01-13 15:10] VITALS: BP 129/58
[2022-01-13] MEDS: DOCUSATE SODIUM 100 MG CAPSULE PO SCH (20:13)
[2022-01-13] MEDS: ATORVASTATIN 40 MG TABLET PO SCH (20:13)
[2022-01-13] MEDS: DILTIAZEM HCL CD 300 MG CAP.SR.24H PO SCH (20:15)
[2022-01-13 20:25] VITALS: BP 114/66
[2022-01-14 04:27] VITALS: BP 123/60
[2022-01-14] MEDS: PANTOPRAZOLE SODIUM 40 MG TABLET.DR PO SCH (06:18)
[2022-01-14 07:33] VITALS: BP 109/66
[2022-01-14] MEDS: APIXABAN 5 MG TABLET PO SCH (08:53)
[2022-01-14] MEDS: METHIMAZOLE 5 MG TABLET PO SCH (08:53)
--- NOTE | 2022-01-14 12:09 | NUR ---
Received discharge order to home with home health for PT, OT and nursing services from Dr. La. Patient and daughter Lizz guido.
--- NOTE | 2022-01-14 15:08 | NUR ---
Discharge instructions provided to the patient and daughter Lizz who is at bedside with verbalized understanding. Discharge papers signed by and given to Lizz. All belongings well accounted for. Patient remains alert, oriented x 3, not in any form of distress on room air. She denies any pain or discomfort. Needs attended to promptly. Assisted patient to the lobby via wheelchair. 1440 Patient picked up by Lizz via private car.
== END 2022-01-14 15:20 | disposition home health service (06) | DRG 57 ==
PROVIDERS: ADMIT Physical Medicine & Rehabilitation Pain Medicine; ATTEND Physical Medicine & Rehabilitation Pain Medicine
DX: I69.398 Other sequelae of cerebral infarction (principal); I69.351 Hemiplegia and hemiparesis following cerebral infarction affecting right dominant side; E05.90 Thyrotoxicosis, unspecified without thyrotoxic crisis or storm; E78.5 Hyperlipidemia, unspecified; M48.00 Spinal stenosis, site unspecified; I69.318 Other symptoms and signs involving cognitive functions following cerebral infarction; R53.1 Weakness; I10 Essential (primary) hypertension; I25.2 Old myocardial infarction; I48.91 Unspecified atrial fibrillation; M48.061 Spinal stenosis, lumbar region without neurogenic claudication; M47.816 Spondylosis without myelopathy or radiculopathy, lumbar region; M41.9 Scoliosis, unspecified; Z79.899 Other long term (current) drug therapy; E66.8 Other obesity; M25.511 Pain in right shoulder; R90.82 White matter disease, unspecified; R42 Dizziness and giddiness; Z88.0 Allergy status to penicillin; Z91.018 Allergy to other foods
CPT/HCPCS: 36415; 71045; 83735; 83921; 84100; 85025; 97161; 97535-GO-CO; A4663; J3301; J3490

== ENCOUNTER 2022-04-01 15:31 | Emergency (ER) | payer MEDICARE, OTHER ==
[~2022-04-01] VITALS: Ht 165.1 cm; Wt 70.3 kg
[2022-04-01 16:12] LABS: HEMATOCRIT 40.9 % (31.2-41.9); MEAN CORPUSCULAR HEMOGLOBIN 30.2 uug (24.7-32.8); MEAN CORPUSCULAR VOLUME 90.7 fL (75.5-95.3); PLATELET COUNT (AUTO) 287 K/uL (179-408)
[2022-04-01 16:16] LABS: CARBON DIOXIDE 29 mmol/L (21-32); CHLORIDE 103 mmol/L (98-107); CREATININE 1.1 mg/dL (0.6-1.3); GLUCOSE 132 mg/dL (74-106); POTASSIUM 3.6 mmol/L (3.5-5.1); UREA NITROGEN, BLOOD 16 mg/dL (7-18)
--- NOTE | 2022-04-01 16:18 | NUR ---
at bedside heat to toe assessment in progress with the help of Mr. Binh Tavares's on the phones.
[2022-04-01 16:22] LABS: ALANINE AMINOTRANSFERASE 12 U/L (14-59); ALKALINE PHOSPHATASE 125 U/L (50-136); ASPARTATE AMINOTRANSFERASE 14 U/L (15-37); BILIRUBIN,DIRECT 0.2 mg/dL (0.0-0.2); BILIRUBIN,TOTAL 0.5 mg/dL (0.2-1.0); TOTAL PROTEIN, SERUM 6.9 g/dL (6.4-8.2)
--- NOTE | 2022-04-01 16:45 | NUR ---
urine collected via I&O cath. specimen sent to lab.
[2022-04-01 16:59] LABS: *BILIRUBIN,URIN NEGATIVE (NEGATIVE); *BLOOD, URINE NEGATIVE (NEGATIVE); *CLARITY,URINE CLEAR (CLEAR); *COLOR,URINE YELLOW (YELLOW); *KETONES,URINE NEGATIVE (NEGATIVE); *UROBILINOGEN,URINE 0.2 E.U./dl (NORMAL); LEUKOCYTE ESTERASE ,URINE NEGATIVE (NEGATIVE); NITRITE, URINE NEGATIVE (NEGATIVE); UGLUCOSE NEGATIVE (NEGATIVE)
--- NOTE | 2022-04-01 17:47 | NUR ---
DCD instructions given to pt. who verbalized understanding. Patient left via wheelchair, accompanied by pt's daughter. vitals of HR 60, 98% on RA sbp of 114/71. No c/of pain.
== END 2022-04-01 17:49 | disposition home or self-care (01) ==
LOC: ER 15:33
DX: R31.9 Hematuria, unspecified (principal); F03.90 Unspecified dementia, unspecified severity, without behavioral disturbance, psychotic disturbance, mood disturbance, and anxiety; I48.91 Unspecified atrial fibrillation; E78.5 Hyperlipidemia, unspecified; I10 Essential (primary) hypertension; I25.2 Old myocardial infarction; Z88.0 Allergy status to penicillin; Z79.01 Long term (current) use of anticoagulants; Z86.73 Personal history of transient ischemic attack (TIA), and cerebral infarction without residual deficits; Z79.899 Other long term (current) drug therapy
CPT/HCPCS: 36415; 85025; A4663; C1758

== ENCOUNTER 2022-07-19 00:56 | Inpatient (IN) | payer MEDICARE, OTHER ==
[~2022-07-19] VITALS: Ht 162.6 cm; Wt 63.5 kg
--- NOTE | 2022-07-19 01:05 | NUR ---
Dr Paul at bedside MSE in progress
[2022-07-19] MEDS ORDERED: IV NORMAL SALINE 500 ML BAG IV ONE (01:45)
[2022-07-19] MEDS ORDERED: HYDROMORPHONE 1 MG/1 ML DISP.SYRIN IV ONE (01:45)
[2022-07-19] MEDS ORDERED: ONDANSETRON 4 MG/2 ML VIAL IV ONE (01:45)
[2022-07-19] MEDS ORDERED: ONDANSETRON 4 MG/2 ML VIAL ONE (01:55)
[2022-07-19] MEDS ORDERED: HYDROMORPHONE 1 MG/1 ML DISP.SYRIN ONE (01:56)
[2022-07-19 02:13] LABS: HEMATOCRIT 41.3 % (31.2-41.9); MEAN CORPUSCULAR HEMOGLOBIN 31.3 uug (24.7-32.8); MEAN CORPUSCULAR VOLUME 91.1 fL (75.5-95.3); PLATELET COUNT (AUTO) 297 K/uL (179-408)
[2022-07-19 02:21] LABS: CARBON DIOXIDE 33 mmol/L (21-32); CHLORIDE 104 mmol/L (98-107); CREATININE 1.1 mg/dL (0.6-1.3); GLUCOSE 138 mg/dL (74-106); UREA NITROGEN, BLOOD 20 mg/dL (7-18)
[2022-07-19 02:23] LABS: POTASSIUM 2.6 mmol/L (3.5-5.1)
[2022-07-19 02:30] LABS: ALANINE AMINOTRANSFERASE 20 U/L (14-59); ALKALINE PHOSPHATASE 104 U/L (50-136); ASPARTATE AMINOTRANSFERASE 14 U/L (15-37); BILIRUBIN,DIRECT 0.1 mg/dL (0.0-0.2); BILIRUBIN,TOTAL 0.5 mg/dL (0.2-1.0); LIPASE 150 U/L (73-393); TOTAL PROTEIN, SERUM 7.1 g/dL (6.4-8.2)
[2022-07-19] MEDS ORDERED: POTASSIUM CHLORIDE 20 MEQ POWDER PACKET PO ONE (02:30)
[2022-07-19] MEDS ORDERED: IV 0.9% SODIUM CHLORID+ 20 KCL 1,000 ML IV ONE (02:30)
[2022-07-19] MEDS ORDERED: IV 0.9% SODIUM CHLORID+ 20 KCL 1,000 ML ONE (02:48)
[2022-07-19] MEDS ORDERED: POTASSIUM CHLORIDE 20 MEQ POWDER PACKET ONE (02:48)
[2022-07-19 02:52] LABS: *BILIRUBIN,URIN NEGATIVE (NEGATIVE); *BLOOD, URINE 2+ (NEGATIVE); *CLARITY,URINE CLOUDY (CLEAR); *COLOR,URINE YELLOW (YELLOW); *KETONES,URINE NEGATIVE (NEGATIVE); *UROBILINOGEN,URINE 0.2 E.U./dl (NORMAL); LEUKOCYTE ESTERASE ,URINE 3+ (NEGATIVE); NITRITE, URINE POSITIVE (NEGATIVE); PH,URINE 6.5 (5.0-8.0); UGLUCOSE NEGATIVE (NEGATIVE)
[2022-07-19 02:57] LABS: BACTERIA,URINE MANY /HPF (NONE SEEN); RBC,URINE 0-3 /HPF (0-3); SQUAMOUS EPITHELIAL CELL,UR FEW /HPF (NONE SEEN); WBC,URINE TNTC /HPF (0-3)
[2022-07-19 02:59] LABS: ABG BASE EXCESS 4.5 mmol/L; ABG PCO2 42.7 mmHg (35.0-45.0); ABG PO2 60.4 mmHg (75.0-100.0); ABG SITE RIGHT RADIAL; ABG TOTAL HEMOGLOBIN 13.8 G/dL (12.0-16.0); COHb 0.8 % (0.5-1.5); MetHb 0.2 % (0.0-1.5); O2Hb 90.1 % (94.0-97.0); VENT MODE Room Air
[2022-07-19] MEDS ORDERED: SWABABLE VALVE TRANSFER SET EA MC ONE (03:19)
[2022-07-19] MEDS ORDERED: IV NORMAL SALINE 250 ML IV ONE (03:19)
[2022-07-19] MEDS ORDERED: IOHEXOL 350 100 ML INFUS..BTL ONE (03:19)
--- NOTE | 2022-07-19 03:35 | NUR ---
Patient taken to CT by entry level automotive technician
--- NOTE | 2022-07-19 03:49 | NUR ---
Patient back from CT
[2022-07-19] MEDS ORDERED: METRONIDAZOLE 500 MG/NS 100 ML PIGGYBACK IV ONE (05:30)
[2022-07-19] MEDS ORDERED: CEFTRIAXONE 1 G in IV DEXTROSE 5% 50 ML IV ONE (05:30)
--- NOTE | 2022-07-19 05:33 | NUR ---
called [facility] for panel call
--- NOTE | 2022-07-19 05:35 | NUR ---
Patient has been accepted by Ronni HANNAH
[2022-07-19] MEDS ORDERED: CEFTRIAXONE /D5W 50ML IVPB **ER PYXIS IV ONE (05:40)
[2022-07-19] MEDS ORDERED: METRONIDAZOLE 500 MG/NS 100ML 100 ML IV ONE (05:40)
--- NOTE | 2022-07-19 05:40 | NUR ---
Called 3rd floor for bed. Patient will be transfered to room 307 AM shift
--- NOTE | 2022-07-19 07:10 | NUR ---
Patient is resting comfortably in bed with eyes closed, NAD noted.
[2022-07-19] MEDS ORDERED: ACETAMINOPHEN 325 MG TABLET PO PRN (07:30)
[2022-07-19] MEDS ORDERED: REMEDY ESSENTIAL ZINC PASTE 113 GM TP PRN (07:30)
[2022-07-19] MEDS ORDERED: MAGNESIUM HYDROXIDE 30 ML LIQUID UDC PO PRN (07:30)
[2022-07-19] MEDS ORDERED: ONDANSETRON 4 MG/2 ML VIAL IV PRN (07:30)
[2022-07-19] MEDS ORDERED: IV NS 1000 ML 1,000 ML IV PRN (07:30)
[2022-07-19 08:09] LABS: HEMATOCRIT 36.6 % (31.2-41.9); MEAN CORPUSCULAR HEMOGLOBIN 32.2 uug (24.7-32.8); MEAN CORPUSCULAR VOLUME 91.9 fL (75.5-95.3); PLATELET COUNT (AUTO) 259 K/uL (179-408)
[2022-07-19 08:17] LABS: MAGNESIUM 1.8 mg/dL (1.8-2.4); PHOSPHOROUS 3.1 mg/dL (2.5-4.9); POTASSIUM 3.9 mmol/L (3.5-5.1)
[2022-07-19] MEDS ORDERED: PANTOPRAZOLE SODIUM IV 40 MG in IV DEXTROSE 5% 100 ML IV SCH (09:00)
[2022-07-19 09:01] VITALS: BP 121/67
[2022-07-19] MEDS: PANTOPRAZOLE SODIUM 40 MG VIAL IV SCH (09:22)
[2022-07-19] MEDS: MEROPENEM 1 G in IV NORMAL SALINE 100 ML IV SCH ×2 (09:23→21:49)
[2022-07-19] MEDS ORDERED: CLOP75TA15 PO (11:25)
[2022-07-19] MEDS ORDERED: DILT300C57 PO (11:25)
[2022-07-19] MEDS ORDERED: ERGO2500 PO (11:25)
[2022-07-19] MEDS ORDERED: MECL-159 PO (11:25)
[2022-07-19] MEDS ORDERED: CYAN10006 IJ (11:25)
[2022-07-19] MEDS ORDERED: DEXL60CA3 PO (11:25)
[2022-07-19] MEDS ORDERED: ICOS1CAP PO (11:25)
[2022-07-19] MEDS: METHIMAZOLE 5 MG TABLET PO SCH (12:14)
[2022-07-19] MEDS: APIXABAN 5 MG TABLET PO SCH ×2 (12:15→21:53)
[2022-07-19 12:44] LABS: THYROID STIMULATING HORMONE 1.12 mIU/mL (0.358-3.740)
[2022-07-19] MEDS ORDERED: METRONIDAZOLE 500 MG/NS 100ML 500 MG in PREMIXED 1 EACH IV SCH (14:00)
[2022-07-19 15:03] VITALS: BP 113/52
[2022-07-19] MEDS ORDERED: METHIMAZOLE 5 MG TABLET PO SCH (17:00)
--- NOTE | 2022-07-19 18:09 | NUR ---
8:21AM-Admitted this 86 Y/O female patient under the care of Dr. León from E.R. floor. Placed patient in room 307, patient was seen by Dr. León whom did rounds this AM. Patient is alert and oriented; appears confused and fogetful. Farsi speaking primary language and able to communicate basic needs in Hungarian language. Patient denied any pain upon admission assessment. No major skin problems noted upon body abaissements, did observed scattered fading away skin discoloration to bilateral lower extremities and thick toe nails. Patient is able to hear and see adequately. Overall lung knox sound clear upon auscultation. Abdomen is soft and non distended with regular BS present in all quadrants. Patient has a lyle catheter in place, draining to yellow urine/gravity. Patient is able to move upper extremities but weak on the lower extremities and bed bound. Per E. R . report, patient came from [facility] but lives home with family. Oriented patient to facility and surroundings. Safety precautions implemented; educated on the use and to use call light for help every time needed with good understanding. Bed alarm in functioning order and on. Patient has a peripheral to LT AC G 18" flushing well; first dose of IV ATB administered with IVF hydration as ordered., Isai Buck visited patient during shift, questions answered and concerns addressed.
--- NOTE | 2022-07-19 19:24 | NUR ---
UA specimen collected and taken to the lab as ordered by
[2022-07-19 20:00] VITALS: BP 110/56
[2022-07-20 04:00] VITALS: BP 96/54
[2022-07-20 05:46] LABS: HEMATOCRIT 37.5 % (31.2-41.9); MEAN CORPUSCULAR VOLUME 92.8 fL (75.5-95.3); PLATELET COUNT (AUTO) 243 K/uL (179-408)
[2022-07-20] MEDS ORDERED: CEFTRIAXONE 1 G in IV DEXTROSE 5% 50 ML IV SCH (06:00)
[2022-07-20 06:03] LABS: BILIRUBIN,TOTAL 0.5 mg/dL (0.2-1.0); CREATININE 0.8 mg/dL (0.6-1.3); MAGNESIUM 1.9 mg/dL (1.8-2.4); PHOSPHOROUS 2.6 mg/dL (2.5-4.9); POTASSIUM 3.5 mmol/L (3.5-5.1); TOTAL PROTEIN, SERUM 6.1 g/dL (6.4-8.2)
[2022-07-20] MEDS: PANTOPRAZOLE SODIUM 40 MG VIAL IV SCH (08:14)
[2022-07-20] MEDS: APIXABAN 5 MG TABLET PO SCH ×3 (08:15→18:35)
[2022-07-20] MEDS: MEROPENEM 1 G in IV NORMAL SALINE 100 ML IV SCH ×2 (08:23→23:04)
[2022-07-20] MEDS: METHIMAZOLE 5 MG TABLET PO SCH (09:09)
[2022-07-20 11:37] VITALS: BP 149/69
[2022-07-20 15:08] VITALS: BP 153/83
[2022-07-20 20:00] VITALS: BP 130/82
--- NOTE | 2022-07-20 20:09 | NUR ---
Patient care assumed. Patient s IV out with moderate amount of bleeding noted. Message sent to certification technician.
[2022-07-20 20:57] LABS: HEMATOCRIT 37.5 % (31.2-41.9)
[2022-07-21 04:00] VITALS: BP 118/61
[2022-07-21] MEDS ORDERED: PANTOPRAZOLE SODIUM 40 MG TABLET.DR PO SCH (07:00)
[2022-07-21] MEDS: METHIMAZOLE 5 MG TABLET PO SCH (08:43)
[2022-07-21] MEDS: APIXABAN 5 MG TABLET PO SCH ×2 (08:43→16:49)
[2022-07-21] MEDS: MEROPENEM 1 G in IV NORMAL SALINE 100 ML IV SCH (08:43)
[2022-07-21] MEDS ORDERED: ACET325T53 PO (11:22)
[2022-07-21] MEDS ORDERED: PANT40TA49 PO (11:22)
[2022-07-21] MEDS ORDERED: MERO1VIA23 IV (11:22)
[2022-07-21] MEDS ORDERED: ACID1TAB4 PO (11:22)
[2022-07-21] MEDS ORDERED: DILT180C66 PO (11:22)
[2022-07-21 11:37] VITALS: BP 130/77
[2022-07-21 16:32] VITALS: BP 139/80
== END 2022-07-21 17:52 | DRG 871 ==
LOC: ER 01:05 → MEDSURG3 07:51
PROVIDERS: ADMIT Internal Medicine; ATTEND Internal Medicine
DX: A41.9 Sepsis, unspecified organism (principal); G92.8 Other toxic encephalopathy; J96.01 Acute respiratory failure with hypoxia; N39.0 Urinary tract infection, site not specified; I48.20 Chronic atrial fibrillation, unspecified; I69.351 Hemiplegia and hemiparesis following cerebral infarction affecting right dominant side; E05.90 Thyrotoxicosis, unspecified without thyrotoxic crisis or storm; K52.89 Other specified noninfective gastroenteritis and colitis; E78.5 Hyperlipidemia, unspecified; E87.6 Hypokalemia; I25.2 Old myocardial infarction; Z20.822 Contact with and (suspected) exposure to COVID-19; Z88.0 Allergy status to penicillin; Z87.891 Personal history of nicotine dependence; Z79.01 Long term (current) use of anticoagulants; Z91.81 History of falling; I10 Essential (primary) hypertension; Z74.09 Other reduced mobility; F01.50 Vascular dementia, unspecified severity, without behavioral disturbance, psychotic disturbance, mood disturbance, and anxiety; N28.1 Cyst of kidney, acquired; Z90.710 Acquired absence of both cervix and uterus; M41.9 Scoliosis, unspecified; K83.8 Other specified diseases of biliary tract; K56.41 Fecal impaction; I25.10 Atherosclerotic heart disease of native coronary artery without angina pectoris; B96.20 Unspecified Escherichia coli [E. coli] as the cause of diseases classified elsewhere
CPT/HCPCS: 36415; 36600; 51702; 71045; 83605; 83690; 83735; 84100; 84443; 84484; 85018; 85025; 85730; 87077; 87086; 93005; 93307; A4663; C9113; G0378; J0696; J1170; J2185; J2405; J3490; J7040; Q9967

== ENCOUNTER 2022-07-21 18:13 | Inpatient (IN) | payer MEDICARE, OTHER ==
[~2022-07-21] VITALS: Ht 162.6 cm; Wt 63.5 kg
[~2022-07-21 18:13] MED LIST changes: +ACET325T53 PO; +ACID1TAB4 PO; +CLOP75TA15 PO; +CYAN10006 IJ; +DEXL60CA3 PO; -DILT120C11 PO; +DILT180C66 PO; +DILT300C57 PO; +ERGO2500 PO; +ICOS1CAP PO; +MECL-159 PO; +MERO1VIA23 IV; -PANT40TA2 PO; +PANT40TA49 PO
[2022-07-21] MEDS ORDERED: REMEDY ESSENTIAL ZINC PASTE 113 GM TOP PRN (18:15)
--- NOTE | 2022-07-21 19:30 | NUR ---
Admitted a 86 yr old female from [facility] to Rehab with admitting diagnosis of acute metabolic encepalopathy, UTI and early sepsis. AAOx3-4 with some periods of forgetfulness and confusion. Patient speaks Farsi very minimal Polish. Able to make needs known. Skin intact with some redness to sacral area. Eckert catheter intact draining yellow urine, patient has hx of urinary retention. 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 Patient has #22 gauge on the right hand, on IV ABT for UTI. Fall precautions maintained. Call galeana within reach. Bed alarm on. Incontinent of BMx2 Kept clean and dry. Will monitor patient. Able to swallow pills whole. No acute distress noted.
[2022-07-21] MEDS ORDERED: MEROPENEM 1 G VIAL IV SCH (20:30)
[2022-07-21] MEDS ORDERED: ACETAMINOPHEN 325 MG TABLET-SA PATIENTS-PAIN ONLY PO PRN (20:30)
[2022-07-21 20:32] VITALS: BP 128/59
[2022-07-21] MEDS ORDERED: MEROPENEM 1 G in IV NORMAL SALINE 100 ML IV SCH (21:00)
[2022-07-21] MEDS: DOCUSATE SODIUM 100 MG CAPSULE PO SCH (21:20)
[2022-07-22 04:10] VITALS: BP 139/83
[2022-07-22] MEDS: PANTOPRAZOLE SODIUM 40 MG TABLET.DR PO SCH (06:02)
[2022-07-22 07:42] VITALS: BP 141/71
[2022-07-22] MEDS ORDERED: MEROPENEM 1 G in IV NORMAL SALINE 100 ML IV SCH (09:00)
[2022-07-22] MEDS: ACIDOPHILUS/BULGARICUS CHEW TAB PO SCH ×2 (09:02→16:15)
[2022-07-22] MEDS: DILTIAZEM HCL CD 180 MG CAP.SR.24H PO SCH (09:02)
[2022-07-22] MEDS: MULTIVITAMINS,THERAPEUTIC TABLET PO SCH (09:04)
[2022-07-22] MEDS: APIXABAN 5 MG TABLET PO SCH ×2 (09:05→16:15)
[2022-07-22] MEDS: METHIMAZOLE 5 MG TABLET PO SCH (09:08)
[2022-07-22] MEDS: CEFAZOLIN 1 G in IV DEXTROSE 5% 50 ML IV SCH (16:14)
[2022-07-22 16:46] VITALS: BP 152/74
[2022-07-22 20:00] VITALS: BP 130/75
[2022-07-22] MEDS: DOCUSATE SODIUM 100 MG CAPSULE PO SCH (20:22)
[2022-07-23] MEDS: CEFAZOLIN 1 G in IV DEXTROSE 5% 50 ML IV SCH ×3 (00:02→16:32)
--- NOTE | 2022-07-23 00:48 | NUR ---
Patient in bed at this time, AAOx2, confused mental state, room air / no sob, Eckert catheter intact. will continue to monitor.
[2022-07-23 04:00] VITALS: BP 132/59
[2022-07-23] MEDS: PANTOPRAZOLE SODIUM 40 MG TABLET.DR PO SCH ×2 (06:01→09:44)
[2022-07-23 07:50] VITALS: BP 121/57
[2022-07-23] MEDS: DILTIAZEM HCL CD 180 MG CAP.SR.24H PO SCH (09:00)
[2022-07-23] MEDS: ACIDOPHILUS/BULGARICUS CHEW TAB PO SCH ×2 (09:44→17:14)
[2022-07-23] MEDS: MULTIVITAMINS,THERAPEUTIC TABLET PO SCH (09:44)
[2022-07-23] MEDS: METHIMAZOLE 5 MG TABLET PO SCH (09:44)
[2022-07-23] MEDS: APIXABAN 5 MG TABLET PO SCH ×2 (09:46→17:15)
--- NOTE | 2022-07-23 14:48 | NUR ---
Receive patient in hospital bed with eyes close. She appears to be comfortable. Patient is Farsi speaking. Calm and relax at this time. She is alert and oriented x2-3 with slight confusion and a bit disoriented. Patient came in for Acute Metabolic encephalpathy/ UTI with early sepsis. She is ARU. Normal air movement with no apparent distress noted. Has a right hand 22 guage IV. She is full code. Allergies Penicillin and on pureed diet. Skin cool to the touch, intact. Patient is ab.le to take pills whole. No new concerns or new orders at this time. Will continue to monitor.
[2022-07-23 16:40] VITALS: BP 134/80
[2022-07-23] MEDS: DOCUSATE SODIUM 100 MG CAPSULE PO SCH (20:39)
[2022-07-23 21:40] VITALS: BP 140/72
[2022-07-24] MEDS: CEFAZOLIN 1 G in IV DEXTROSE 5% 50 ML IV SCH ×3 (00:41→16:28)
[2022-07-24 06:25] VITALS: BP 137/62
[2022-07-24 06:42] LABS: HEMATOCRIT 36.4 % (31.2-41.9); MEAN CORPUSCULAR HEMOGLOBIN 31.2 uug (24.7-32.8); MEAN CORPUSCULAR VOLUME 92.5 fL (75.5-95.3); PLATELET COUNT (AUTO) 265 K/uL (179-408)
[2022-07-24 06:57] LABS: BILIRUBIN,TOTAL 0.2 mg/dL (0.2-1.0); CREATININE 0.8 mg/dL (0.6-1.3); MAGNESIUM 2.3 mg/dL (1.8-2.4); PHOSPHOROUS 3.3 mg/dL (2.5-4.9); POTASSIUM 4.2 mmol/L (3.5-5.1); TOTAL PROTEIN, SERUM 6.2 g/dL (6.4-8.2)
[2022-07-24 07:47] VITALS: BP 127/69
--- NOTE | 2022-07-24 08:36 | NUR ---
INDIVIDUALIZED PLAN OF CARE
[2022-07-24] MEDS: MULTIVITAMINS,THERAPEUTIC TABLET PO SCH (08:53)
[2022-07-24] MEDS: ACIDOPHILUS/BULGARICUS CHEW TAB PO SCH ×2 (08:53→16:28)
[2022-07-24] MEDS: DILTIAZEM HCL CD 180 MG CAP.SR.24H PO SCH (08:54)
[2022-07-24] MEDS: APIXABAN 5 MG TABLET PO SCH ×2 (08:54→16:30)
[2022-07-24] MEDS: METHIMAZOLE 5 MG TABLET PO SCH (08:57)
[2022-07-24] MEDS: ACETAMINOPHEN 325 MG TABLET PO PRN (09:35)
--- NOTE | 2022-07-24 09:35 | NUR ---
PATIENT IS ALERT BUT AGITATED AND RESTLESS EVEN THE PHYSICAL THERAPIST WAS ATTEMTING TO WALK HER SEEMS TO BE POINTING TO HER LOWER ABDOMEN SHE HAS A TAYLOR THAT IS DRAINING YELLOW URINE WITH SEDIMENTS BLADDER SCANNED AND ITS AT ZERO PATIENT MEDICATED WITH TYLENOL ORDERED MADE COMFORTABLE WILL OBSERVE.
--- NOTE | 2022-07-24 12:45 | NUR ---
PATIENT STILL NOT COMFORTABLE POINTING TO HER LOWER ABDOMEN SO DR FITZGERALD NOTIFIED AND HE WENT IN AND SAW THE PATIENT AND STATED TO REMOVE THE TAYLOR AND START PATIENT ON PYRIDIUM AND NOTED.
--- NOTE | 2022-07-24 12:54 | NUR ---
TAYLOR CATH REMOVED WITH 700 URINE OUTPUT.
[2022-07-24] MEDS: PHENAZOPYRIDINE HCL 100 MG TABLET PO SCH ×2 (13:39→21:23)
[2022-07-24 14:49] VITALS: BP 138/66
--- NOTE | 2022-07-24 15:00 | NUR ---
RESTING IN BED QUIETER AT THIS TIME HAS NOT VOIDED WILL CONTINUE TO OBSERVE PYRIDIUM GIVEN ORDERED.
--- NOTE | 2022-07-24 17:00 | NUR ---
PATIENT VOIDED ADEQUATE AMOUNT INCONTINENT ROSHAN CARE DIAPER CHANGED MADE COMFORTABLE.
--- NOTE | 2022-07-24 18:21 | NUR ---
RESTING IN ROOM WITH NO C/O OF AT THIS TIME
[2022-07-24] MEDS: DOCUSATE SODIUM 100 MG CAPSULE PO SCH (20:52)
[2022-07-25] MEDS: CEFAZOLIN 1 G in IV DEXTROSE 5% 50 ML IV SCH ×3 (00:31→16:21)
--- NOTE | 2022-07-25 00:32 | NUR ---
Awake alert and oriented x 3-4 Needs attended. VSS. No acute distress noted. Admitted for acute metabolic encepalopathy and UTI. Eckert d/c'ed earlier, was incontinent of bowel and bladder. No BM noted this shift. Kept clean and dry. Started on pyridium and Ancef given as scheduled. Tolerated po meds well. Will monitor patient. Fall precautions maintained.Call galeana within reach. No complaints presented during shift.
[2022-07-25] MEDS: PHENAZOPYRIDINE HCL 100 MG TABLET PO SCH ×3 (05:28→21:18)
[2022-07-25] MEDS: PANTOPRAZOLE SODIUM 40 MG TABLET.DR PO SCH (06:05)
[2022-07-25 08:00] VITALS: BP 113/61
[2022-07-25] MEDS: ACIDOPHILUS/BULGARICUS CHEW TAB PO SCH ×2 (08:36→16:21)
[2022-07-25] MEDS: MULTIVITAMINS,THERAPEUTIC TABLET PO SCH (08:36)
[2022-07-25] MEDS: DILTIAZEM HCL CD 180 MG CAP.SR.24H PO SCH (08:36)
[2022-07-25] MEDS: APIXABAN 5 MG TABLET PO SCH ×2 (08:38→16:24)
[2022-07-25] MEDS: METHIMAZOLE 5 MG TABLET PO SCH (08:41)
--- NOTE | 2022-07-25 09:16 | NUR ---
0715-Rec'd patient in bed, asleep, no respiratory distress. Skin warm/dry to the touch, afebrile. No facial grimaces or moaning noted. IV 22"G to RT back of hand flushing well, site intact. Bed at low position with alarm on/working order, call light at reach. 0900-Scheduled/due medication administered as ordered, patient swallow well, oral fluids encouraged as renetta. and taken well. IV ATB Cefepime -UTI, started and infusing well. Will monitor closely. 0915-Patient eating breakfast, sitting at bedside, assisted by rehab personnel.
--- NOTE | 2022-07-25 10:28 | NUR ---
INTERDISCIPLINARY TEAM CONFERENCE
[2022-07-25 16:00] VITALS: BP 115/68
[2022-07-25] MEDS ORDERED: BISACODYL 10 MG SUPP.RECT RC PRN (18:15)
--- NOTE | 2022-07-25 18:27 | NUR ---
Patient with abdomen distended, per patient she feels bloated and did not have a BM today. Obtained orders from Dr. Fuentes for Supp. WA 10MG prn HS. order noted and carried out.
[2022-07-25 19:53] VITALS: BP 141/63
[2022-07-25] MEDS: DOCUSATE SODIUM 100 MG CAPSULE PO SCH (20:43)
[2022-07-26] MEDS: CEFAZOLIN 1 G in IV DEXTROSE 5% 50 ML IV SCH ×3 (00:39→16:19)
[2022-07-26 05:31] VITALS: BP 135/69
[2022-07-26] MEDS: PANTOPRAZOLE SODIUM 40 MG TABLET.DR PO SCH (06:01)
[2022-07-26] MEDS: PHENAZOPYRIDINE HCL 100 MG TABLET PO SCH ×3 (06:01→21:04)
--- NOTE | 2022-07-26 06:40 | NUR ---
PT IS ALERT AND ORIENTED X3-4. VITAL SIGNS STABLE. PT. IS FARSI SPEAKING WITH LIMITED CONGOLESE. VITAL SIGNS STABLE. PT. IS INCONTINENT BOWEL AND BLADDER. RN NOTED 4 BOWEL MOVEMENTS DURING THE SHIFT. PT HAD RESTLESS INTERMITTENT SLEEP THROUGHOUT SHIFT DUE TO BOWEL MOVEMENTS MENTIONED. RN ADMIN ANTIBIOTICS ORDERED. PT. TOLERATES MEDICATIONS WELL. NO ACUTE DISTRESS NOTED. PT. DENIES PAIN. HOURLY ROUNDING PERFORMED BY RN PER POLICY. BED IN LOWEST SETTING WITH BED ALARM ON. CALL LIGHT WITHIN REACH. WILL ENDORSE CARE TO AM RN.
[2022-07-26 07:40] VITALS: BP 131/64
--- NOTE | 2022-07-26 07:44 | NUR ---
0715-Patient in bed asleep, respiration even and unlabored. Skin warm/dry to the touch/afebrile. Patient able to wake up on gently touch/verbal commands, denies pain or discomfort. Safety measures in place and call light within reach, as per report from NOC shift, patient had BM soft form X4 times.
[2022-07-26] MEDS: MULTIVITAMINS,THERAPEUTIC TABLET PO SCH (08:50)
[2022-07-26] MEDS: ACIDOPHILUS/BULGARICUS CHEW TAB PO SCH ×2 (08:50→16:19)
[2022-07-26] MEDS: DILTIAZEM HCL CD 180 MG CAP.SR.24H PO SCH (08:50)
[2022-07-26] MEDS: APIXABAN 5 MG TABLET PO SCH ×2 (08:51→16:20)
[2022-07-26] MEDS: ACETAMINOPHEN 325 MG TABLET PO PRN (08:51)
[2022-07-26] MEDS: METHIMAZOLE 5 MG TABLET PO SCH (08:52)
[2022-07-26 15:11] VITALS: BP 143/61
--- NOTE | 2022-07-26 18:47 | NUR ---
22"G Needle/IV reinserted to LILIANA due to previous pulled out. Patient tolerated well procedure, IV secured with clear tape & Patient continues on IV ATB therapy as ordered by MD with no A/R noted.
--- NOTE | 2022-07-26 19:30 | NUR ---
Received patient lying in bed. Asleep but easily arouse to verbal stimuli. In no apparent distress. No signs or symptoms of pain or SOB. IV site on left AC intact and patent. Needs assessed and anticipated to. Safety measure initiated and call light within reached.
[2022-07-26 20:00] VITALS: BP 121/59
[2022-07-26] MEDS: DOCUSATE SODIUM 100 MG CAPSULE PO SCH (20:16)
[2022-07-27] MEDS: CEFAZOLIN 1 G in IV DEXTROSE 5% 50 ML IV SCH ×2 (00:01→10:22)
[2022-07-27] MEDS: ACETAMINOPHEN 325 MG TABLET PO PRN (01:00)
[2022-07-27 04:00] VITALS: BP 106/72
[2022-07-27] MEDS: PHENAZOPYRIDINE HCL 100 MG TABLET PO SCH ×3 (05:07→21:29)
--- NOTE | 2022-07-27 05:27 | NUR ---
Patient slept during the night. In no acute distress. No adverse reaction noted from IV antibiotic. Needs assessed and attended to. Safety measure maintained and call light within reached.
[2022-07-27] MEDS: PANTOPRAZOLE SODIUM 40 MG TABLET.DR PO SCH (06:09)
[2022-07-27 08:00] VITALS: BP 114/64
[2022-07-27] MEDS: DILTIAZEM HCL CD 180 MG CAP.SR.24H PO SCH (10:17)
[2022-07-27] MEDS: ACIDOPHILUS/BULGARICUS CHEW TAB PO SCH ×2 (10:17→16:45)
[2022-07-27] MEDS: APIXABAN 5 MG TABLET PO SCH ×2 (10:17→16:46)
[2022-07-27] MEDS: METHIMAZOLE 5 MG TABLET PO SCH (10:18)
[2022-07-27] MEDS: MULTIVITAMINS,THERAPEUTIC TABLET PO SCH (10:19)
[2022-07-27 16:17] VITALS: BP 136/76
[2022-07-27 20:00] VITALS: BP 128/78
[2022-07-27] MEDS: DOCUSATE SODIUM 100 MG CAPSULE PO SCH (21:29)
[2022-07-28 04:00] VITALS: BP 137/80
[2022-07-28] MEDS: PHENAZOPYRIDINE HCL 100 MG TABLET PO SCH ×3 (06:04→21:02)
[2022-07-28] MEDS: PANTOPRAZOLE SODIUM 40 MG TABLET.DR PO SCH (06:04)
[2022-07-28 07:35] VITALS: BP 145/80
[2022-07-28] MEDS: MULTIVITAMINS,THERAPEUTIC TABLET PO SCH (09:09)
[2022-07-28] MEDS: ACIDOPHILUS/BULGARICUS CHEW TAB PO SCH ×2 (09:09→17:18)
[2022-07-28] MEDS: METHIMAZOLE 5 MG TABLET PO SCH (09:10)
[2022-07-28] MEDS: APIXABAN 5 MG TABLET PO SCH ×2 (09:10→17:18)
[2022-07-28] MEDS: DILTIAZEM HCL CD 180 MG CAP.SR.24H PO SCH (09:11)
[2022-07-28 15:10] VITALS: BP 101/60
[2022-07-28 20:00] VITALS: BP 111/56
[2022-07-28] MEDS: DOCUSATE SODIUM 100 MG CAPSULE PO SCH (20:56)
[2022-07-29 04:00] VITALS: BP 122/73
[2022-07-29] MEDS: PHENAZOPYRIDINE HCL 100 MG TABLET PO SCH ×3 (06:02→21:00)
[2022-07-29] MEDS: PANTOPRAZOLE SODIUM 40 MG TABLET.DR PO SCH (06:02)
[2022-07-29 07:40] VITALS: BP 124/62
[2022-07-29] MEDS: MULTIVITAMINS,THERAPEUTIC TABLET PO SCH (09:00)
[2022-07-29] MEDS: APIXABAN 5 MG TABLET PO SCH ×2 (09:01→17:17)
[2022-07-29] MEDS: DILTIAZEM HCL CD 180 MG CAP.SR.24H PO SCH (09:01)
[2022-07-29] MEDS: ACIDOPHILUS/BULGARICUS CHEW TAB PO SCH ×2 (09:01→17:17)
[2022-07-29] MEDS: METHIMAZOLE 5 MG TABLET PO SCH (09:02)
[2022-07-29 16:00] VITALS: BP 116/65
[2022-07-29 20:00] VITALS: BP 112/51
[2022-07-29] MEDS: DOCUSATE SODIUM 100 MG CAPSULE PO SCH (22:07)
[2022-07-30 04:00] VITALS: BP 118/59
[2022-07-30] MEDS ORDERED: PHENAZOPYRIDINE HCL 100 MG TABLET ONE (04:09)
[2022-07-30] MEDS: PHENAZOPYRIDINE HCL 100 MG TABLET PO SCH (06:15)
[2022-07-30] MEDS: PANTOPRAZOLE SODIUM 40 MG TABLET.DR PO SCH (06:51)
[2022-07-30 08:04] VITALS: BP 119/64
[2022-07-30] MEDS: ACIDOPHILUS/BULGARICUS CHEW TAB PO SCH ×2 (09:51→17:17)
[2022-07-30] MEDS: MULTIVITAMINS,THERAPEUTIC TABLET PO SCH (09:53)
[2022-07-30] MEDS: DILTIAZEM HCL CD 180 MG CAP.SR.24H PO SCH (09:53)
[2022-07-30] MEDS: APIXABAN 5 MG TABLET PO SCH ×2 (09:57→17:21)
[2022-07-30] MEDS: METHIMAZOLE 5 MG TABLET PO SCH (09:57)
[2022-07-30 16:00] VITALS: BP 109/68
--- NOTE | 2022-07-30 18:02 | NUR ---
PATIENT HAS BEEN QUIET ALL DAY. NO S/S OF PAIN. SHE IS CALM AND RELAXED. ALERT AND ORIENTED X2-3. BREATHING NORMAL ON ROOM AIR AND NO APPARENT DISTRESS NOTED. HAS LEFT AC 22 GAUGE. PATIENT FULL CODE. ALLERGIES FOR PENICILLINS AND PEPPER. SHE IS ON MECHANICAL SOFT DIET. ALL MEDICATION TOLERATED WELL, CRUSHED AND MIXED WITH APPLE SAUCE. PATIENT IS INCONTINENT TO BOWEL AND BLADDER. ABLE TO AMBULATE WITH ASSIST.NO NEW CONCERNS REPORTED.
[2022-07-30 20:00] VITALS: BP 135/68
[2022-07-30] MEDS: DOCUSATE SODIUM 100 MG CAPSULE PO SCH (21:25)
[2022-07-31 04:00] VITALS: BP 129/82
[2022-07-31] MEDS: PANTOPRAZOLE SODIUM 40 MG TABLET.DR PO SCH (06:24)
--- NOTE | 2022-07-31 07:24 | NUR ---
Pt stable slept throughout the night.
--- NOTE | 2022-07-31 07:33 | NUR ---
Recd patient in bed awake, able to verbalize simple needs/short words in Latvian. No respiratory distress/SOB, on R/A renetta. well. Skin warm and dry to touch, afebrile. No facial grimaces or moaning noted, no verbalization of pain. Safety measures and call light within reach.
[2022-07-31 07:39] VITALS: BP 128/71
[2022-07-31] MEDS: MULTIVITAMINS,THERAPEUTIC TABLET PO SCH (08:41)
[2022-07-31] MEDS: ACIDOPHILUS/BULGARICUS CHEW TAB PO SCH ×2 (08:42→16:35)
[2022-07-31] MEDS: DILTIAZEM HCL CD 180 MG CAP.SR.24H PO SCH (08:42)
[2022-07-31] MEDS: METHIMAZOLE 5 MG TABLET PO SCH (08:44)
[2022-07-31] MEDS: APIXABAN 5 MG TABLET PO SCH ×2 (08:44→16:36)
--- NOTE | 2022-07-31 14:55 | NUR ---
Patient OOB during shift, ambulated with FWW & PT renetta. well, still with unsteady gait, poor coordination/balance control and difficulty in walking, thus improved from upon admission. LUE peripheral pulled out. Applied direct pressure to puncture site/band-aid. Patient denies pain or discomfort. Assist with ADLs and as needed.
[2022-07-31 16:45] VITALS: BP 118/85
[2022-07-31 21:18] VITALS: BP 127/64
[2022-07-31] MEDS: DOCUSATE SODIUM 100 MG CAPSULE PO SCH (21:45)
[2022-08-01 04:11] VITALS: BP 137/70
[2022-08-01] MEDS: PANTOPRAZOLE SODIUM 40 MG TABLET.DR PO SCH (06:22)
[2022-08-01 07:45] VITALS: BP 141/70
--- NOTE | 2022-08-01 07:51 | NUR ---
Pt ambulating out of bed prn independently. [id number] with Narco prn rt 3rd finger with infected lesion. Continue on antibiotics.
--- NOTE | 2022-08-01 07:52 | NUR ---
Up on routine rounds, pt still in bed asleep, no resp distress observed. All safety measures in place, bedside table with all needed items accessible, call light in reach.
[2022-08-01] MEDS: ACIDOPHILUS/BULGARICUS CHEW TAB PO SCH ×2 (09:09→16:38)
[2022-08-01] MEDS: DILTIAZEM HCL CD 180 MG CAP.SR.24H PO SCH (09:10)
[2022-08-01] MEDS: MULTIVITAMINS,THERAPEUTIC TABLET PO SCH (09:10)
[2022-08-01] MEDS: METHIMAZOLE 5 MG TABLET PO SCH (09:11)
[2022-08-01] MEDS: APIXABAN 5 MG TABLET PO SCH ×2 (09:12→16:40)
--- NOTE | 2022-08-01 10:50 | NUR ---
INTERDISCIPLINARY TEAM CONFERENCE
[2022-08-01 15:52] VITALS: BP 123/63
[2022-08-01 20:00] VITALS: BP 115/62
[2022-08-01] MEDS: DOCUSATE SODIUM 100 MG CAPSULE PO SCH (20:57)
[2022-08-02] VITALS: BP 110/60
[2022-08-02 04:00] VITALS: BP 117/61
[2022-08-02] MEDS: PANTOPRAZOLE SODIUM 40 MG TABLET.DR PO SCH (06:01)
[2022-08-02 07:56] VITALS: BP 113/54
[2022-08-02] MEDS: MULTIVITAMINS,THERAPEUTIC TABLET PO SCH (08:18)
[2022-08-02] MEDS: ACIDOPHILUS/BULGARICUS CHEW TAB PO SCH ×2 (08:18→16:48)
[2022-08-02] MEDS: APIXABAN 5 MG TABLET PO SCH ×2 (08:18→16:48)
[2022-08-02] MEDS: DILTIAZEM HCL CD 180 MG CAP.SR.24H PO SCH (08:19)
[2022-08-02] MEDS: METHIMAZOLE 5 MG TABLET PO SCH (08:20)
[2022-08-02 15:16] VITALS: BP 113/63
--- NOTE | 2022-08-02 19:28 | NUR ---
no events noted during shift.
[2022-08-02 20:00] VITALS: BP 110/59
[2022-08-02] MEDS: ACETAMINOPHEN 325 MG TABLET PO PRN (21:04)
[2022-08-02] MEDS: DOCUSATE SODIUM 100 MG CAPSULE PO SCH (21:04)
[2022-08-03 04:00] VITALS: BP 113/62
[2022-08-03] MEDS: PANTOPRAZOLE SODIUM 40 MG TABLET.DR PO SCH (06:26)
[2022-08-03 06:37] LABS: HEMATOCRIT 35.9 % (31.2-41.9); MEAN CORPUSCULAR HEMOGLOBIN 31.6 uug (24.7-32.8); MEAN CORPUSCULAR VOLUME 92.7 fL (75.5-95.3); PLATELET COUNT (AUTO) 299 K/uL (179-408)
[2022-08-03 06:56] LABS: ALANINE AMINOTRANSFERASE 8 U/L (14-59); ALKALINE PHOSPHATASE 96 U/L (50-136); ASPARTATE AMINOTRANSFERASE 10 U/L (15-37); BILIRUBIN,TOTAL 0.4 mg/dL (0.2-1.0); CARBON DIOXIDE 27 mmol/L (21-32); CHLORIDE 104 mmol/L (98-107); CREATININE 0.9 mg/dL (0.6-1.3); GLUCOSE 97 mg/dL (74-106); POTASSIUM 4.4 mmol/L (3.5-5.1); TOTAL PROTEIN, SERUM 6.1 g/dL (6.4-8.2); UREA NITROGEN, BLOOD 16 mg/dL (7-18)
[2022-08-03 07:42] VITALS: BP 117/71
[2022-08-03] MEDS: ACIDOPHILUS/BULGARICUS CHEW TAB PO SCH ×2 (08:38→16:31)
[2022-08-03] MEDS: METHIMAZOLE 5 MG TABLET PO SCH (08:38)
[2022-08-03] MEDS: MULTIVITAMINS,THERAPEUTIC TABLET PO SCH (08:38)
[2022-08-03] MEDS: DILTIAZEM HCL CD 180 MG CAP.SR.24H PO SCH (08:38)
[2022-08-03] MEDS: APIXABAN 5 MG TABLET PO SCH ×2 (08:40→16:32)
[2022-08-03 16:09] VITALS: BP 141/38
--- NOTE | 2022-08-03 19:00 | NUR ---
Pt. is alert and oriented x3-4, and speaks Farsi. Pt. participates with occupational and physical therapy throughout the day; and received shower. No acute distress noted. Pt. tolerates PO medications and was consist with diet.Pt. denies pain. Pt. rested on and off again during the shift. Hourly rounding done. Fall precautions in place; bed lowest position and bed alarm in place. RN will endorse care to [employer], RN
[2022-08-03 20:00] VITALS: BP 91/61
[2022-08-03] MEDS: DOCUSATE SODIUM 100 MG CAPSULE PO SCH (20:32)
[2022-08-03] MEDS: ACETAMINOPHEN 325 MG TABLET PO PRN (20:32)
[2022-08-04] MEDS: PANTOPRAZOLE SODIUM 40 MG TABLET.DR PO SCH (06:20)
[2022-08-04 07:37] VITALS: BP 109/75
[2022-08-04] MEDS: APIXABAN 5 MG TABLET PO SCH ×2 (08:21→16:52)
[2022-08-04] MEDS: METHIMAZOLE 5 MG TABLET PO SCH (08:21)
[2022-08-04] MEDS: MULTIVITAMINS,THERAPEUTIC TABLET PO SCH (08:21)
[2022-08-04] MEDS: DILTIAZEM HCL CD 180 MG CAP.SR.24H PO SCH (08:21)
[2022-08-04] MEDS: ACIDOPHILUS/BULGARICUS CHEW TAB PO SCH ×2 (08:21→16:52)
[2022-08-04 15:06] VITALS: BP 109/65
--- NOTE | 2022-08-04 18:40 | NUR ---
Pt. is alert and oriented x4, and speaks Farsi. Pt. tolerates PO medications, and participates in physical and occupational therapy per plan. Pt. tolerates diet plan. No acute distress noted. Referred family questions and concerns to [employer]ps Driver. Pt. denies pain. Hourly rounding done. Fall precautions in place; bed in lowest position & bed alarm on. All needs met at this time. With endorse to [facility], DIANE.
[2022-08-04 20:11] VITALS: BP 109/58
[2022-08-04] MEDS: ACETAMINOPHEN 325 MG TABLET PO PRN (20:43)
[2022-08-04] MEDS: DOCUSATE SODIUM 100 MG CAPSULE PO SCH (20:43)
[2022-08-05 04:50] VITALS: BP 118/76
[2022-08-05] MEDS: PANTOPRAZOLE SODIUM 40 MG TABLET.DR PO SCH (06:43)
[2022-08-05] MEDS: METHIMAZOLE 5 MG TABLET PO SCH (08:18)
[2022-08-05] MEDS: APIXABAN 5 MG TABLET PO SCH ×2 (08:19→17:19)
[2022-08-05] MEDS: DILTIAZEM HCL CD 180 MG CAP.SR.24H PO SCH (08:19)
[2022-08-05] MEDS: MULTIVITAMINS,THERAPEUTIC TABLET PO SCH (08:20)
[2022-08-05] MEDS: ACIDOPHILUS/BULGARICUS CHEW TAB PO SCH ×2 (08:20→17:18)
[2022-08-05 12:31] VITALS: BP 121/67
[2022-08-05 13:02] VITALS: BP 121/67
[2022-08-05 16:41] VITALS: BP 105/56
[2022-08-05 20:00] VITALS: BP 117/67
[2022-08-05] MEDS: DOCUSATE SODIUM 100 MG CAPSULE PO SCH (21:04)
[2022-08-06 04:00] VITALS: BP 120/76
[2022-08-06] MEDS: PANTOPRAZOLE SODIUM 40 MG TABLET.DR PO SCH (06:16)
[2022-08-06 07:32] VITALS: BP 124/68
[2022-08-06] MEDS: MULTIVITAMINS,THERAPEUTIC TABLET PO SCH (08:50)
[2022-08-06] MEDS: ACIDOPHILUS/BULGARICUS CHEW TAB PO SCH ×2 (08:50→16:07)
[2022-08-06] MEDS: DILTIAZEM HCL CD 180 MG CAP.SR.24H PO SCH (08:50)
[2022-08-06] MEDS: METHIMAZOLE 5 MG TABLET PO SCH (08:50)
[2022-08-06] MEDS: APIXABAN 5 MG TABLET PO SCH ×2 (08:51→16:07)
[2022-08-06 15:47] VITALS: BP 129/61
--- NOTE | 2022-08-06 18:18 | NUR ---
no events noted
[2022-08-06 20:00] VITALS: BP 129/64
[2022-08-06] MEDS: DOCUSATE SODIUM 100 MG CAPSULE PO SCH (20:55)
[2022-08-06] MEDS: ACETAMINOPHEN 325 MG TABLET PO PRN (20:55)
[2022-08-07 04:00] VITALS: BP 115/62
[2022-08-07] MEDS: PANTOPRAZOLE SODIUM 40 MG TABLET.DR PO SCH (06:44)
[2022-08-07 07:32] VITALS: BP 123/65
[2022-08-07] MEDS: DILTIAZEM HCL CD 180 MG CAP.SR.24H PO SCH (08:45)
[2022-08-07] MEDS: ACIDOPHILUS/BULGARICUS CHEW TAB PO SCH (08:48)
[2022-08-07] MEDS: APIXABAN 5 MG TABLET PO SCH (08:48)
[2022-08-07] MEDS: MULTIVITAMINS,THERAPEUTIC TABLET PO SCH (08:49)
[2022-08-07] MEDS: METHIMAZOLE 5 MG TABLET PO SCH (08:49)
--- NOTE | 2022-08-07 14:55 | NUR ---
Transfer report given to Radha. Pt will leave at 4 pm via ambulance.
[2022-08-07 16:00] VITALS: BP 129/64
--- NOTE | 2022-08-07 16:39 | NUR ---
Pt. discharged 1625 via ambulance. Medication list sent. Belongings given. Pt. left comfortable and stable.
== END 2022-08-07 16:25 | DRG 91 ==
PROVIDERS: ADMIT Physical Medicine & Rehabilitation Pain Medicine; ATTEND Physical Medicine & Rehabilitation Pain Medicine
DX: G92.8 Other toxic encephalopathy (principal); A41.9 Sepsis, unspecified organism; E43 Unspecified severe protein-calorie malnutrition; J96.01 Acute respiratory failure with hypoxia; I48.20 Chronic atrial fibrillation, unspecified; N39.0 Urinary tract infection, site not specified; E78.5 Hyperlipidemia, unspecified; F01.50 Vascular dementia, unspecified severity, without behavioral disturbance, psychotic disturbance, mood disturbance, and anxiety; I10 Essential (primary) hypertension; Z20.822 Contact with and (suspected) exposure to COVID-19; Z86.73 Personal history of transient ischemic attack (TIA), and cerebral infarction without residual deficits; Z91.81 History of falling; E05.90 Thyrotoxicosis, unspecified without thyrotoxic crisis or storm; E88.09 Other disorders of plasma-protein metabolism, not elsewhere classified; I25.2 Old myocardial infarction; R53.1 Weakness; K52.89 Other specified noninfective gastroenteritis and colitis; K56.41 Fecal impaction; K57.90 Diverticulosis of intestine, part unspecified, without perforation or abscess without bleeding; K83.8 Other specified diseases of biliary tract; M41.9 Scoliosis, unspecified; N28.1 Cyst of kidney, acquired; Z87.891 Personal history of nicotine dependence; Z90.710 Acquired absence of both cervix and uterus; R29.6 Repeated falls; Z88.0 Allergy status to penicillin; Z91.018 Allergy to other foods; I25.10 Atherosclerotic heart disease of native coronary artery without angina pectoris
CPT/HCPCS: 36415; 83735; 84100; 85025; 97535-GO-CO; A4663; J0690; J2185; J7040